=== PATIENT | male | born 1945 ===

== ENCOUNTER 2020-03-02 10:16 | Inpatient (IN) | payer MEDICARE, BC ==
--- NOTE | 2020-03-02 07:47 | EDM.PDOC ---
ED HPI GENERAL MEDICAL PROBLEM - General Stated Complaint: AMBULANCE Time Seen by Provider: 03/02/20 08:05 Source of Information: Reports: Patient, EMS History Limitations: Reports: No Limitations - History of Present Illness INITIAL COMMENTS - FREE TEXT/NARRATIVE: This 74 yo male patient was brought to the ED by [facility] due to increased shortness of breath and head congestion. The patient had an oxygen saturation of 94-95% after EMS placed the patient on a nasal cannula @ 6 lpm. The patient reports his shortness of breath started to get worse yesterday. The patient reports his symptoms are much worse with any exertion. The patient denies any chest pain. The patient reports he has had 2 stents placed in 1997. The patient has a past medical history of CAD, Htn and diabetes. Onset Date: 03/01/20 Duration: Constant, Getting Worse Location: Reports: Chest Quality: Reports: Pressure Severity: Moderate Improves with: Reports: Rest Worsens with: Reports: Movement Context: Reports: Activity Associated Symptoms: Reports: Shortness of Breath. 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) - Related Data Allergies Allergy/AdvReac Type Severity Reaction Status Date / Time No Known Allergies Allergy Verified 03/02/20 08:05 Home Meds: Home Meds Aspirin [Aspirin EC] 81 mg PO DAILY 03/02/20 [History] Glucosamine [Glucosamine Sulfate] 500 mg PO TID 03/02/20 [History] Lansoprazole [Prevacid] 30 mg PO DAILY 03/02/20 [History] amLODIPine Besylate [Amlodipine Besylate] 10 mg PO BID 03/02/20 [History] atenoloL [Atenolol] 100 mg PO BID 03/02/20 [History] glipiZIDE [Glucotrol XL] 5 mg PO BRK 03/02/20 [History] hydroCHLOROthiazide [Hydrochlorothiazide] 50 mg PO DAILY 03/02/20 [History] lisinopriL [Lisinopril] 40 mg PO BID 03/02/20 [History] metFORMIN [Glucophage] 1,000 mg PO BIDMEALS 03/02/20 [History] ED ROS GENERAL - Review of Systems Review Of Systems: Comprehensive ROS is negative, except as noted in HPI. ED EXAM, GENERAL - Physical Exam Exam: See Below Exam Limited By: No Limitations General Appearance: Alert, WD/WN, Mild Distress, Obese Eye Exam: Bilateral Eye: EOMI, Normal Inspection, PERRL Ears: Normal External Exam, Normal Canal, Hearing Grossly Normal, Normal TMs Nose: Normal Inspection, Normal Mucosa, No Blood Throat/Mouth: Normal Inspection, Normal Lips, Normal Teeth, Normal Gums, Normal Oropharynx, Normal Voice, No Airway Compromise Head: Atraumatic, Normocephalic Neck: Normal Inspection, Supple, Non-Tender, Full Range of Motion Respiratory/Chest: Decreased Breath Sounds (throughout) Cardiovascular: Irregularly Irregular GI/Abdominal: Normal Bowel Sounds, Soft, Non-Tender, No Organomegaly, No Distention, No Abnormal Bruit, No Mass, Other (obese) (Male) Exam: Deferred Rectal (Males) Exam: Deferred Back Exam: Normal Inspection, Full Range of Motion, NT Extremities: Normal Inspection, Normal Range of Motion, Non-Tender, Normal Capillary Refill, No Pedal Edema Neurological: Alert, Oriented, CN II-XII Intact, Normal Cognition, Normal Gait, Normal Reflexes, No Motor/Sensory Deficits Psychiatric: Normal Affect, Normal Mood Skin Exam: Warm, Dry, Intact, Normal Color, No Rash Lymphatic: No Adenopathy Course - Vital Signs Last Recorded V/S: Last Vital Signs Temp 36.8 C 03/02/20 07:50 Pulse 97 03/02/20 07:50 Resp 28 H 03/02/20 07:50 BP 155/90 H 03/02/20 07:50 Pulse Ox 93 L 03/02/20 07:50 - Orders/Labs/Meds Orders: Active Orders 24 hr Category Date Time Status Admission Diagnosis [ADT] Urgent ADT 03/02/20 10:08 Ordered Admission Status [Patient Status] [ADT] Routine ADT 03/02/20 10:08 Ordered EKG Documentation Completion [RC] STAT Care 03/02/20 08:13 Active CORONAVIRUS COVID-19 PCR PHL Urgent Lab 03/02/20 10:02 Ordered CULTURE BLOOD [BC] Stat Lab 03/02/20 08:14 Ordered CULTURE BLOOD [BC] Stat Lab 03/02/20 08:51 Ordered Azithromycin [Zithromax] 500 mg Med 03/02/20 10:07 Ordered Sodium Chloride 0.9% [Normal Saline (AdvBag)] 250 ml IV ONETIME cefTRIAXone [Rocephin] 1 gm Med 03/02/20 10:07 Ordered Sodium Chloride 0.9% [Normal Saline] 50 ml IV ONETIME Isolation [COMM] Routine Oth 03/02/20 07:42 Active Medication Orders Azithromycin 500 mg/ Sodium (Chloride) 250 mls @ 250 mls/hr IV ONETIME ONE Stop: 03/02/20 11:06 Ceftriaxone Sodium 1 gm/ (Sodium Chloride) 50 mls @ 100 mls/hr IV ONETIME ONE Stop: 03/02/20 10:36 Labs: Laboratory Tests 03/02/20 03/02/20 03/02/20 Range/Units 07:50 08:18 08:18 WBC 14.1 H (5.0-10.0) 10^3/uL RBC 4.68 (4.6-6.2) 10^6/uL Hgb 13.9 L (14.0-18.0) g/dL Hct 40.1 (40.0-54.0) % MCV 85.7 (80-100) fL MCH 29.7 (27.0-34.0) pg MCHC 34.7 (33.0-35.0) g/dL Plt Count 292 (150-450) 10^3/uL Neut % (Auto) 88.2 H (42.2-75.2) % Lymph % (Auto) 4.9 L (20.5-50.1) % [place] % (Auto) 6.2 (2-8) % Eos % (Auto) 0.2 L (1.0-3.0) % Baso % (Auto) 0.5 (0.0-1.0) % Add Manual Diff Yes Neutrophils % (Manual) 87 H (42-75) % Band Neutrophils % 1 % Lymphocytes % (Manual) 6 L (20-50) % Monocytes % (Manual) 6 (2-8) % D-Dimer, Quantitative (0-400) ng/mL Sodium 137 (136-145) mmol/L Potassium 3.7 (3.5-5.1) mmol/L Chloride 98 (98-107) mmol/L Carbon Dioxide 24 (21-32) mmol/L Anion Gap 18.7 H (7-13) mEq/L BUN 21 H (7-18) mg/dL Creatinine 1.36 H (0.70-1.30) mg/dL Est Cr Clr Drug Dosing 50.75 mL/min Estimated GFR (MDRD) 51 BUN/Creatinine Ratio 15.4 (No establ ref range) Glucose 221 H (74-99) mg/dL Lactic Acid (0.4-2.0) mmol/L Calcium 8.4 L (8.5-10.1) mg/dL Total Bilirubin 3.2 H (0.2-1.0) mg/dL AST 24 (15-37) U/L ALT 26 (16-63) U/L Alkaline Phosphatase 90 (46-116) U/L Troponin I < 0.017 (0.000-0.056) ng/mL C-Reactive Protein 22.0 H (0.0-0.9) mg/dL B-Natriuretic Peptide (0-100) pg/ml Total Protein 7.1 (6.4-8.2) g/dL Albumin 3.0 L (3.4-5.0) g/dL Globulin 4.1 Albumin/Globulin Ratio 0.73 SARS CoV-2 RNA Rapid MATEO Negative (NEGATIVE) 03/02/20 03/02/20 03/02/20 Range/Units 08:18 08:18 08:18 WBC (5.0-10.0) 10^3/uL RBC (4.6-6.2) 10^6/uL Hgb (14.0-18.0) g/dL Hct (40.0-54.0) % MCV (80-100) fL MCH (27.0-34.0) pg MCHC (33.0-35.0) g/dL Plt Count (150-450) 10^3/uL Neut % (Auto) (42.2-75.2) % Lymph % (Auto) (20.5-50.1) % [place] % (Auto) (2-8) % Eos % (Auto) (1.0-3.0) % Baso % (Auto) (0.0-1.0) % Add Manual Diff Neutrophils % (Manual) (42-75) % Band Neutrophils % % Lymphocytes % (Manual) (20-50) % Monocytes % (Manual) (2-8) % D-Dimer, Quantitative 2220 H (0-400) ng/mL Sodium (136-145) mmol/L Potassium (3.5-5.1) mmol/L Chloride (98-107) mmol/L Carbon Dioxide (21-32) mmol/L Anion Gap (7-13) mEq/L BUN (7-18) mg/dL Creatinine (0.70-1.30) mg/dL Est Cr Clr Drug Dosing mL/min Estimated GFR (MDRD) BUN/Creatinine Ratio (No establ ref range) Glucose (74-99) mg/dL Lactic Acid 2.4 H* (0.4-2.0) mmol/L Calcium (8.5-10.1) mg/dL Total Bilirubin (0.2-1.0) mg/dL AST (15-37) U/L ALT (16-63) U/L Alkaline Phosphatase (46-116) U/L Troponin I (0.000-0.056) ng/mL C-Reactive Protein (0.0-0.9) mg/dL B-Natriuretic Peptide 411 H (0-100) pg/ml Total Protein (6.4-8.2) g/dL Albumin (3.4-5.0) g/dL Globulin Albumin/Globulin Ratio SARS CoV-2 RNA Rapid MATEO (NEGATIVE) Meds: Medications Generic Name Dose Route Start Last Admin Trade Name Freq PRN Reason Stop Dose Admin Azithromycin 500 mg/ Sodium 250 mls @ 250 mls/hr 03/02/20 10:07 Chloride IV 03/02/20 11:06 ONETIME ONE Ceftriaxone Sodium 1 gm/ 50 mls @ 100 mls/hr 03/02/20 10:07 Sodium Chloride IV 03/02/20 10:36 ONETIME ONE Discontinued Medications Generic Name Dose Route Start Last Admin Trade Name Freq PRN Reason Stop Dose Admin Aspirin 324 mg 03/02/20 08:27 03/02/20 08:43 Aspirin PO 03/02/20 08:28 324 mg ONETIME ONE Administration Iopamidol 100 ml 03/02/20 09:13 03/02/20 09:50 Isovue-370 (76%) IVPUSH 03/02/20 09:14 83 ml ONETIME ONE Administration Departure - Departure Time of Disposition: 10:14 Disposition: Admitted As Inpatient 66 Condition: Poor Clinical Impression: Hypoxia Pneumonia Qualifiers: Pneumonia type: due to unspecified organism Laterality: bilateral Lung location: unspecified part of lung Qualified Code(s): J18.9 - Pneumonia, unspecified organism - Discharge Information *PRESCRIPTION DRUG MONITORING PROGRAM REVIEWED*: Not Applicable *COPY OF PRESCRIPTION DRUG MONITORING REPORT IN PATIENT SRINATH: Not Applicable Care Plan Goals: Discussed the patient's history, examination, EKG, lab, x-ray and CT results with Dr. Beltre. Dr. Beltre accepted the patient as an inpatient at [facility] in [place] for continued evaluation and management of his symptoms. Sepsis Event Note (ED) - Focused Exam Vital Signs: Vital Signs Temp Pulse Resp BP Pulse Ox 03/02/20 07:50 36.8 C 97 28 H 155/90 H 93 L - My Orders Last 24 Hours: My Active Orders 03/02/20 07:42 Isolation [COMM] Routine 03/02/20 08:13 EKG Documentation Completion [RC] STAT 03/02/20 08:14 CULTURE BLOOD [BC] Stat 03/02/20 08:51 CULTURE BLOOD [BC] Stat 03/02/20 10:02 CORONAVIRUS COVID-19 PCR PHL Urgent 03/02/20 10:07 Azithromycin [Zithromax] 500 mg Sodium Chloride 0.9% [Normal Saline (AdvBag)] 250 ml IV ONETIME cefTRIAXone [Rocephin] 1 gm Sodium Chloride 0.9% [Normal Saline] 50 ml IV ONETIME 03/02/20 10:08 Admission Diagnosis [ADT] Urgent Admission Status [Patient Status] [ADT] Routine - Assessment/Plan Last 24 Hours: My Active Orders 03/02/20 07:42 Isolation [COMM] Routine 03/02/20 08:13 EKG Documentation Completion [RC] STAT 03/02/20 08:14 CULTURE BLOOD [BC] Stat 03/02/20 08:51 CULTURE BLOOD [BC] Stat 03/02/20 10:02 CORONAVIRUS COVID-19 PCR PHL Urgent 03/02/20 10:07 Azithromycin [Zithromax] 500 mg Sodium Chloride 0.9% [Normal Saline (AdvBag)] 250 ml IV ONETIME cefTRIAXone [Rocephin] 1 gm Sodium Chloride 0.9% [Normal Saline] 50 ml IV ONETIME 03/02/20 10:08 Admission Diagnosis [ADT] Urgent Admission Status [Patient Status] [ADT] Routine
--- NOTE | 2020-03-02 08:43 | CR ---
PROCEDURE INFORMATION: Exam: XR Chest, 1 View Exam date and time: 03/02/2020 8:30 AM Age: 74 years old Clinical indication: Shortness of breath; Additional info: Short of breath (covid -) TECHNIQUE: Imaging protocol: XR of the chest Views: 1 view. COMPARISON: No relevant prior exams. FINDINGS: Lungs: Hazy perihilar airspace consolidation bilaterally. Pleural space: Unremarkable. No pleural effusion. No pneumothorax. Heart/Mediastinum: Unremarkable. No cardiomegaly. Bones/joints: Unremarkable. IMPRESSION: Hazy perihilar airspace consolidation bilaterally. This may represent a community or hospital-acquired bacterial pneumonia. It may represent a viral pneumonia. If clinical concern remains, further evaluation with CT is recommended.
[2020-03-02 09:03] LABS: ANION GAP 18.7 mEq/L (7-13); CHLORIDE,CL 98 mmol/L (98-107); SODIUM,NA 137 mmol/L (136-145)
--- NOTE | 2020-03-02 09:55 | CT ---
PROCEDURE INFORMATION: Exam: CT Chest With Contrast; Diagnostic Exam date and time: 03/02/2020 9:36 AM Age: 74 years old Clinical indication: Shortness of breath; Patient HX: HX colon and bladder CA; Additional info: Short of breath TECHNIQUE: Imaging protocol: Diagnostic computed tomography of the chest with intravenous contrast. Radiation optimization: All CT scans at this facility use at least one of these dose optimization techniques: automated exposure control; mA and/or kV adjustment per patient size (includes targeted exams where dose is matched to clinical indication); or iterative reconstruction. Contrast material: ISOVUE 370; Contrast volume: 83 ml; Contrast route: INTRAVENOUS (IV); COMPARISON: CR Chest 1V Frontal 03/02/2020 8:30 AM FINDINGS: Lungs: Hazy ground-glass opacity throughout the upper lungs. Pleural space: Small bilateral pleural effusions. Consolidation of the adjacent pulmonary parenchyma. Heart: Mild diffuse cardiac enlargement. Aorta: Unremarkable. No aortic aneurysm. Lymph nodes: Unremarkable. No enlarged lymph nodes. Bones/joints: Mild degenerative spondylosis in the spine. Otherwise, unremarkable. No fractures or dislocations. Soft tissues: Unremarkable. IMPRESSION: 1. Hazy ground-glass opacity throughout the upper lungs may represent edema secondary to failure. A diffuse pneumonitis is also possible. 2. Small bilateral pleural effusions. Air space consolidation adjacent to the effusions may represent compressive atelectasis, pneumonia or a combination of both.
[~2020-03-02 10:16] MED LIST: Aspirin 81 MG Tab.Chew PO ONE; Azithromycin 500 MG in Sodium Chloride 0.9% 250 ML IV ONE; Iopamidol 755 Mg/ML 100 ML Bottle IVPUSH ONE; cefTRIAXone 1 GM in Sodium Chloride 0.9% 50 ML IV ONE
[2020-03-02] MEDS ORDERED: Ondansetron 4 MG/2 ML SDV IVPUSH PRN (11:20)
[2020-03-02] MEDS ORDERED: Magnesium Hydroxide 400 MG/5 ML Susp 30 ML Cup PO PRN (11:20)
[2020-03-02] MEDS ORDERED: Acetaminophen 325 MG Tab PO PRN (11:20)
[2020-03-02] MEDS ORDERED: Docusate Sodium 100 MG Cap PO PRN (11:20)
[2020-03-02] MEDS ORDERED: Sodium Chloride 0.9% 1,000 ML IV SCH (11:30)
--- NOTE | 2020-03-02 11:53 | PCM.HP ---
H&P History of Present Illness - General Date of Service: 03/02/20 Admit Problem/Dx: Admission Diagnosis/Problem Admission Diagnosis/Problem Pneumonia Source of Information: Patient History Limitations: Reports: No Limitations - History of Present Illness Initial Comments - Free Text/Narative: Shelly is 74-year-old male with past medical history significant for CAD status post stents x2, hypertension, type 2 diabetes, morbid obesity who presented to the ED for evaluation of increasing shortness of breath and cough. Per patient he was doing okay until yesterday in the afternoon when about started. He reports increasing shortness of breath especially with exertion. He gets easily fatigued after walking a few distance. He denies chest pain. He has nonproductive cough. He has no fever or chills. He denies leg swelling, calf pain, recent travel or sick contact. He denies orthopnea, PND. This morning shortness of breath was getting worse so he was brought to the ED EMS for further evaluation. per EMS report patient was saturation at 94 to 95% on room air. He was placed on 6 L/min via nasal cannula. In the ED vitals were stable. Oxygen supplementation was decreased to 2.5 L via nasal cannula. Labs significant for WBC 14.1, with left shift. Creatinine 1.36, lactic acid 2.4. BNP 411. COVID-19 test was negative x2 in the ED. D- dimer was elevated at 2220. Chest x-ray showed hazy bilateral consolidation concerning for pneumonia. He had a CTA chest that was negative for PE. It did show hazy groundglass opacity throughout lung for concerning for edema. Patient received IV ceftriaxone and azithromycin. Admission was requested for further management. Onset of Symptoms: Reports: Gradual Duration of Symptoms: Reports: Day(s): Location: Reports: Chest Quality: Reports: Ache Improves with: Reports: Rest Worsens with: Reports: Movement Associated Symptoms: Reports: Cough, Malaise, Shortness of Breath - Related Data Allergies/Adverse Reactions: Allergies Allergy/AdvReac Type Severity Reaction Status Date / Time No Known Allergies Allergy Verified 03/02/20 08:05 Home Medications: Home Meds Aspirin [Aspirin EC] 81 mg PO DAILY 03/02/20 [History] Glucosamine [Glucosamine Sulfate] 1,500 mg PO DAILY 03/02/20 [History] Lansoprazole [Prevacid] 30 mg PO DAILY 03/02/20 [History] amLODIPine Besylate [Amlodipine Besylate] 10 mg PO BID 03/02/20 [History] atenoloL [Atenolol] 100 mg PO BID 03/02/20 [History] atorvaSTATin [Lipitor] 40 mg PO BEDTIME 03/02/20 [History] glipiZIDE [Glucotrol XL] 5 mg PO DAILY 03/02/20 [History] hydroCHLOROthiazide [Hydrochlorothiazide] 50 mg PO DAILY 03/02/20 [History] lisinopriL [Lisinopril] 40 mg PO BID 03/02/20 [History] metFORMIN [Glucophage] 1,000 mg PO BIDMEALS 03/02/20 [History] Past Medical History Cardiovascular History: Reports: High Cholesterol, Hypertension, Stents, Other (See Below) Other Cardiovascular History: Pt states he has been carrying nitro since 1997 Respiratory History: Reports: Sleep Apnea Gastrointestinal History: Reports: GERD Genitourinary History: Reports: Other (See Below) Other Genitourinary History: Tumor removed from bladder Musculoskeletal History: Reports: Fracture, Other (See Below) Endocrine/Metabolic History: Reports: Diabetes, Type II 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, Colon - Infectious Disease History Infectious Disease History: Reports: Measles, Mumps - Past Surgical History Cardiovascular Surgical History: Reports: Other (See Below) Other Cardiovascular Surgeries/Procedures: Cardiac stent Respiratory Surgical History: Reports: None GI Surgical History: Reports: Colon Male Surgical History: Reports: Other (See Below) Other Male Surgeries/Procedures: Tumor removed from bladder Endocrine Surgical History: Reports: None Musculoskeletal Surgical History: Reports: Hip Replacement, Other (See Below) Other Musculoskeletal Surgeries/Procedures:: right hip replacement(may 2018) Social & Family History - Tobacco Use Tobacco Use Status *Q: Former Tobacco User Used Tobacco, but Quit: Yes Month/Year Tobacco Last Used: 1999 - Recreational Drug Use Recreational Drug Use: No H&P Review of Systems - Review of Systems: General: Reports: No Symptoms HEENT: Reports: No Symptoms Pulmonary: Reports: Shortness of Breath, Cough Cardiovascular: Reports: No Symptoms Gastrointestinal: Reports: No Symptoms Genitourinary: Reports: No Symptoms Musculoskeletal: Reports: No Symptoms Skin: Reports: No Symptoms Psychiatric: Reports: No Symptoms Neurological: Reports: No Symptoms Hematologic/Lymphatic: Reports: No Symptoms Immunologic: Reports: No Symptoms Exam - Vital Signs Vital Signs: Last Vital Signs Temp 97.4 F 03/02/20 10:57 Pulse 82 03/02/20 10:57 Resp 28 H 03/02/20 10:57 BP 146/92 H 03/02/20 10:57 Pulse Ox 96 03/02/20 10:57 Weight: 335 lb 9.6 oz - Exam Quality Assessment: Supplemental Oxygen, DVT Prophylaxis General: Alert, Oriented, Other HEENT: PERRLA, Hearing Intact, Mucosa Moist & [place], Nares Patent, Normal Nasal Septum, Posterior Pharynx Clear, Conjunctiva Clear, EOMI, EACs Clear, TMs Clear Neck: Supple, Trachea Midline Lungs: Clear to Auscultation, Normal Respiratory Effort Cardiovascular: Regular Rate, Regular Rhythm GI/Abdominal Exam: Normal Bowel Sounds, Soft, Non-Tender, No Organomegaly, No Distention, No Abnormal Bruit, No Mass, Pelvis Stable (Male) Exam: Deferred Rectal (Males) Exam: Deferred Back Exam: Normal Inspection, Full Range of Motion, NT Extremities: Normal Inspection, Normal Range of Motion, Non-Tender, No Pedal Edema, Normal Capillary Refill Skin: Warm, Dry, Intact Neurological: Cranial Nerves Intact, Reflexes Equal Bilateral Neuro Extensive - Mental Status: Alert, Oriented x3, Normal Mood/Affect, Normal Cognition Neuro Extensive - Motor, Sensory, Reflexes: CN II-XII Intact, Normal Gait, Normal Reflexes - Patient Data Lab Results Last 24 hrs: Laboratory Results - last 24 hr 03/02/20 03/02/20 03/02/20 Range/Units 07:50 08:18 08:18 WBC 14.1 H (5.0-10.0) 10^3/uL RBC 4.68 (4.6-6.2) 10^6/uL Hgb 13.9 L (14.0-18.0) g/dL Hct 40.1 (40.0-54.0) % MCV 85.7 (80-100) fL MCH 29.7 (27.0-34.0) pg MCHC 34.7 (33.0-35.0) g/dL Plt Count 292 (150-450) 10^3/uL Neut % (Auto) 88.2 H (42.2-75.2) % Lymph % (Auto) 4.9 L (20.5-50.1) % [place] % (Auto) 6.2 (2-8) % Eos % (Auto) 0.2 L (1.0-3.0) % Baso % (Auto) 0.5 (0.0-1.0) % Add Manual Diff Yes Neutrophils % (Manual) 87 H (42-75) % Band Neutrophils % 1 % Lymphocytes % (Manual) 6 L (20-50) % Monocytes % (Manual) 6 (2-8) % D-Dimer, Quantitative (0-400) ng/mL Sodium 137 (136-145) mmol/L Potassium 3.7 (3.5-5.1) mmol/L Chloride 98 (98-107) mmol/L Carbon Dioxide 24 (21-32) mmol/L Anion Gap 18.7 H (7-13) mEq/L BUN 21 H (7-18) mg/dL Creatinine 1.36 H (0.70-1.30) mg/dL Est Cr Clr Drug Dosing 50.75 mL/min Estimated GFR (MDRD) 51 BUN/Creatinine Ratio 15.4 (No establ ref range) Glucose 221 H (74-99) mg/dL POC Glucose (83-110) mg/dl Lactic Acid (0.4-2.0) mmol/L Calcium 8.4 L (8.5-10.1) mg/dL Total Bilirubin 3.2 H (0.2-1.0) mg/dL AST 24 (15-37) U/L ALT 26 (16-63) U/L Alkaline Phosphatase 90 (46-116) U/L Troponin I < 0.017 (0.000-0.056) ng/mL C-Reactive Protein 22.0 H (0.0-0.9) mg/dL B-Natriuretic Peptide (0-100) pg/ml Total Protein 7.1 (6.4-8.2) g/dL Albumin 3.0 L (3.4-5.0) g/dL Globulin 4.1 Albumin/Globulin Ratio 0.73 SARS CoV-2 RNA Rapid MATEO Negative (NEGATIVE) 03/02/20 03/02/20 03/02/20 Range/Units 08:18 08:18 08:18 WBC (5.0-10.0) 10^3/uL RBC (4.6-6.2) 10^6/uL Hgb (14.0-18.0) g/dL Hct (40.0-54.0) % MCV (80-100) fL MCH (27.0-34.0) pg MCHC (33.0-35.0) g/dL Plt Count (150-450) 10^3/uL Neut % (Auto) (42.2-75.2) % Lymph % (Auto) (20.5-50.1) % [place] % (Auto) (2-8) % Eos % (Auto) (1.0-3.0) % Baso % (Auto) (0.0-1.0) % Add Manual Diff Neutrophils % (Manual) (42-75) % Band Neutrophils % % Lymphocytes % (Manual) (20-50) % Monocytes % (Manual) (2-8) % D-Dimer, Quantitative 2220 H (0-400) ng/mL Sodium (136-145) mmol/L Potassium (3.5-5.1) mmol/L Chloride (98-107) mmol/L Carbon Dioxide (21-32) mmol/L Anion Gap (7-13) mEq/L BUN (7-18) mg/dL Creatinine (0.70-1.30) mg/dL Est Cr Clr Drug Dosing mL/min Estimated GFR (MDRD) BUN/Creatinine Ratio (No establ ref range) Glucose (74-99) mg/dL POC Glucose (83-110) mg/dl Lactic Acid 2.4 H* (0.4-2.0) mmol/L Calcium (8.5-10.1) mg/dL Total Bilirubin (0.2-1.0) mg/dL AST (15-37) U/L ALT (16-63) U/L Alkaline Phosphatase (46-116) U/L Troponin I (0.000-0.056) ng/mL C-Reactive Protein (0.0-0.9) mg/dL B-Natriuretic Peptide 411 H (0-100) pg/ml Total Protein (6.4-8.2) g/dL Albumin (3.4-5.0) g/dL Globulin Albumin/Globulin Ratio SARS CoV-2 RNA Rapid MATEO (NEGATIVE) 03/02/20 Range/Units 11:22 WBC (5.0-10.0) 10^3/uL RBC (4.6-6.2) 10^6/uL Hgb (14.0-18.0) g/dL Hct (40.0-54.0) % MCV (80-100) fL MCH (27.0-34.0) pg MCHC (33.0-35.0) g/dL Plt Count (150-450) 10^3/uL Neut % (Auto) (42.2-75.2) % Lymph % (Auto) (20.5-50.1) % [place] % (Auto) (2-8) % Eos % (Auto) (1.0-3.0) % Baso % (Auto) (0.0-1.0) % Add Manual Diff Neutrophils % (Manual) (42-75) % Band Neutrophils % % Lymphocytes % (Manual) (20-50) % Monocytes % (Manual) (2-8) % D-Dimer, Quantitative (0-400) ng/mL Sodium (136-145) mmol/L Potassium (3.5-5.1) mmol/L Chloride (98-107) mmol/L Carbon Dioxide (21-32) mmol/L Anion Gap (7-13) mEq/L BUN (7-18) mg/dL Creatinine (0.70-1.30) mg/dL Est Cr Clr Drug Dosing mL/min Estimated GFR (MDRD) BUN/Creatinine Ratio (No establ ref range) Glucose (74-99) mg/dL POC Glucose 184 H (83-110) mg/dl Lactic Acid (0.4-2.0) mmol/L Calcium (8.5-10.1) mg/dL Total Bilirubin (0.2-1.0) mg/dL AST (15-37) U/L ALT (16-63) U/L Alkaline Phosphatase (46-116) U/L Troponin I (0.000-0.056) ng/mL C-Reactive Protein (0.0-0.9) mg/dL B-Natriuretic Peptide (0-100) pg/ml Total Protein (6.4-8.2) g/dL Albumin (3.4-5.0) g/dL Globulin Albumin/Globulin Ratio SARS CoV-2 RNA Rapid MATEO (NEGATIVE) Result Diagrams: 03/02/20 08:18 03/02/20 08:18 [place] Results Last 24 hrs: Microbiology 03/02/20 07:50 Influenza Type A Antigen Screen - Final Nasal, Unspecified NEGATIVE INFLUENZA A VIRUS AG REFERENCE RANGE: NEGATIVE Influenza Type B Antigen Screen - Final NEGATIVE INFLUENZA B VIRUS AG REFERENCE RANGE: NEGATIVE - Problem List (1) Acute respiratory failure with hypoxia SNOMED Code(s): 29550555, 772339117 ICD Code: J96.01 - ACUTE RESPIRATORY FAILURE WITH HYPOXIA Status: Acute Current Visit: Yes (2) Sepsis SNOMED Code(s): 14656273 ICD Code: A41.9 - SEPSIS, UNSPECIFIED ORGANISM Status: Acute Current Visit: Yes (3) High anion gap metabolic acidosis SNOMED Code(s): 04144735 ICD Code: E87.2 - ACIDOSIS Status: Acute Current Visit: Yes (4) Elevated d-dimer SNOMED Code(s): 442508634 ICD Code: R79.89 - OTHER SPECIFIED ABNORMAL FINDINGS OF BLOOD CHEMISTRY Status: Acute Current Visit: Yes (5) Morbid obesity SNOMED Code(s): 808191484 ICD Code: E66.01 - MORBID (SEVERE) OBESITY DUE TO EXCESS CALORIES Status: Acute Current Visit: Yes (6) Community acquired pneumonia SNOMED Code(s): 575456846 ICD Code: J18.9 - PNEUMONIA, UNSPECIFIED ORGANISM Status: Acute Current Visit: Yes Problem List Initiated/Reviewed/Updated: Yes Orders Last 24hrs: Active Orders 24 hr Category Date Time Status Admission Diagnosis [ADT] Urgent ADT 03/02/20 10:08 Ordered Admission Status [Patient Status] [ADT] Routine ADT 03/02/20 10:08 Active Ambulate [RC] ASDIRECTED Care 03/02/20 11:20 Active Blood Glucose Check, Bedside [RC] QIDACANDBED Care 03/02/20 11:20 Active EKG Documentation Completion [RC] STAT Care 03/02/20 08:13 Active Height and Weight [RC] DAILY Care 03/02/20 11:20 Active Intake and Output [RC] QSHIFT Care 03/02/20 11:21 Active Notify Provider Vital Signs [RC] ASDIRECTED Care 03/02/20 11:21 Active Oxygen Therapy [RC] PRN Care 03/02/20 11:21 Active RT Aerosol Therapy [RC] ASDIRECTED Care 03/02/20 11:24 Active VTE/DVT Education [RC] PER UNIT ROUTINE Care 03/02/20 11:21 Active Vital Signs [RC] Q4H Care 03/02/20 11:21 Active OT Evaluation and Treatment [CONS] Routine Cons 03/02/20 11:20 Active PT Evaluation and Treatment [CONS] Routine Cons 03/02/20 11:20 Active Heart Healthy Diet [DIET] Diet 03/02/20 Lunch Active BASIC METABOLIC PANEL,BMP [CHEM] DAILY Lab 03/03/20 07:00 Ordered BASIC METABOLIC PANEL,BMP [CHEM] DAILY Lab 03/04/20 07:00 Ordered BASIC METABOLIC PANEL,BMP [CHEM] DAILY Lab 03/05/20 07:00 Ordered CBC W/O DIFF,HEMOGRAM [HEME] DAILY Lab 03/03/20 07:00 Ordered CBC W/O DIFF,HEMOGRAM [HEME] DAILY Lab 03/04/20 07:00 Ordered CBC W/O DIFF,HEMOGRAM [HEME] DAILY Lab 03/05/20 07:00 Ordered CORONAVIRUS COVID-19 PCR PHL Urgent Lab 03/02/20 10:04 Received CULTURE BLOOD [BC] Stat Lab 03/02/20 08:18 Received CULTURE BLOOD [BC] Stat Lab 03/02/20 08:51 Ordered CULTURE BLOOD [BC] Stat Lab 03/02/20 11:24 Ordered CULTURE BLOOD [BC] Stat Lab 03/02/20 11:24 Ordered CULTURE SPUTUM + SMEAR [RM] Stat Lab 03/02/20 11:20 Ordered GRAM STAIN [RM] Stat Lab 03/02/20 11:20 Ordered MAGNESIUM [CHEM] Routine Lab 03/02/20 11:20 Ordered PHOSPHORUS [CHEM] Routine Lab 03/02/20 11:20 Ordered Acetaminophen [TylenoL] Med 03/02/20 11:20 Active 650 mg PO Q4H PRN Albuterol/Ipratropium [DuoNeb 3.0-0.5 MG/3 ML] Med 03/02/20 11:20 Active 3 ml NEB Q4H PRN Azithromycin [Zithromax] 500 mg Med 03/03/20 11:00 Active Sodium Chloride 0.9% [Normal Saline (AdvBag)] 250 ml IV Q24H Docusate Sodium [Colace] Med 03/02/20 11:20 Active 100 mg PO BID PRN Heparin Sodium Med 03/02/20 21:00 Active 5,000 units SUBCUT Q12HR Magnesium Hydroxide [Milk of Magnesia] Med 03/02/20 11:20 Active 30 ml PO Q12H PRN Ondansetron [Zofran] Med 03/02/20 11:20 Active 4 mg IVPUSH Q6H PRN Sodium Chloride 0.9% [Normal Saline] 1,000 ml Med 03/02/20 11:30 Active IV ASDIRECTED cefTRIAXone [Rocephin] 1 gm Med 03/02/20 12:00 Active Sodium Chloride 0.9% [Normal Saline] 50 ml IV Q24H Blood Culture x2 Reflex Set [OM.PC] Stat Oth 03/02/20 11:20 Ordered Isolation [COMM] Routine Oth 03/02/20 07:42 Active Resuscitation Status Routine Resus Stat 03/02/20 11:20 Ordered Medication Orders Acetaminophen (Tylenol) 650 mg PO Q4H PRN PRN Reason: Pain (Mild 1-3)/fever Albuterol/Ipratropium (Duoneb 3.0-0.5 Mg/3 Ml) 3 ml NEB Q4H PRN PRN Reason: shortness of breath/wheezing Docusate Sodium (Colace) 100 mg PO BID PRN PRN Reason: Constipation Heparin Sodium (Porcine) (Heparin Sodium) 5,000 units SUBCUT Q12HR BRADY Sodium Chloride (Normal Saline) 1,000 mls @ 125 mls/hr IV ASDIRECTED BRADY Stop: 03/02/20 19:29 Ceftriaxone Sodium 1 gm/ (Sodium Chloride) 50 mls @ 100 mls/hr IV Q24H BRADY Azithromycin 500 mg/ Sodium (Chloride) 250 mls @ 250 mls/hr IV Q24H BRADY Magnesium Hydroxide (Milk Of Magnesia) 30 ml PO Q12H PRN PRN Reason: Constipation Ondansetron HCl (Zofran) 4 mg IVPUSH Q6H PRN PRN Reason: Nausea/Vomiting Assessment/Plan Comment:: #Probable pulmonary edema #Community-acquired pneumonia #Acute respiratory failure with hypoxia due to above Patient presented to the ED with increasing shortness of breath He required supplemental oxygen 2.5 L via nasal cannula CT chest negative for PE. Did show hazy groundglass opacity throughout lung field concerning for edema Chest x-ray showed hazy bilateral consolidation concerning for pneumonia BNP mildly elevated at 4 Patient euvolemic on exam Status post IV ceftriaxone and azithromycin in the ED Admit to medical floor Monitor vitals Blood culture, urine culture, sputum for Gram stain and culture Procalcitonin Continue IV ceftriaxone and azithromycin for now Continue supplemental oxygen and wean down as able IV Lasix Duo nebs as needed #Probable sepsis due to pneumonia Continue antibiotic as above for now Follow-up on cultures #Probable acute CHF exacerbation CT concerning for pulmonary edema Patient euvolemic on exam BNP 411 Lasix 40 mg IV twice daily Daily weights Fluid restriction Echo if available #Elevated D-dimer CT chest negative for PE DVT prophylaxis #History of hypertension BP within acceptable Continue home medication Monitor BP closely #Type 2 diabetes Patient on Metformin and glipizide. Hold Metformin for now Continue glipizide Sliding scale Accu-Cheks Hypoglycemia protocol #Morbid obesity Advised to lose weight #Diabetic diet #High discussion with patient and he wants to remain full code
[2020-03-02] MEDS ORDERED: glipiZIDE 5 MG Tab PO SCH (13:00)
[2020-03-02] MEDS: cefTRIAXone 1 GM in Sodium Chloride 0.9% 50 ML IV SCH (13:09)
[2020-03-02] MEDS: Aspirin 81 MG Tab.EC PO SCH (13:13)
[2020-03-02] MEDS: Pantoprazole 40 MG Tab.CR PO SCH (13:13)
[2020-03-02] MEDS: Atenolol 50 MG Tab PO SCH ×2 (13:14→20:51)
[2020-03-02] MEDS: Hydrochlorothiazide 25 MG Tab PO SCH (13:14)
[2020-03-02] MEDS: Lisinopril 20 MG Tab PO SCH ×2 (13:14→20:52)
[2020-03-02] MEDS: amLODIPine 5 MG Tab PO SCH ×2 (13:15→20:51)
[2020-03-02] MEDS: atorvaSTATin 20 MG Tab PO SCH (20:50)
[2020-03-02] MEDS: Heparin Sodium 5,000 Units/ML Vial SUBCUT SCH (20:52)
[2020-03-02] MEDS ORDERED: Furosemide 40 MG/4 ML VIAL IVPUSH ONE (23:04)
[2020-03-02] MEDS: Albuterol/Ipratropium 3.0-0.5 MG/3 ML Neb Soln NEB PRN (23:10)
[2020-03-03] MEDS: Pantoprazole 40 MG Tab.CR PO SCH (06:29)
[2020-03-03 06:52] LABS: ANION GAP 15.7 mEq/L (7-13); CHLORIDE,CL 97 mmol/L (98-107); SODIUM,NA 137 mmol/L (136-145)
[2020-03-03] MEDS: Nitroglycerin 0.1 MG/HR Transdermal Patch TRDERM SCH (09:40)
[2020-03-03] MEDS: Lisinopril 20 MG Tab PO SCH ×2 (09:41→21:56)
[2020-03-03] MEDS: Atenolol 50 MG Tab PO SCH ×2 (09:41→21:57)
[2020-03-03] MEDS: Aspirin 81 MG Tab.EC PO SCH (09:41)
[2020-03-03] MEDS: glipiZIDE 5 MG Tab PO SCH (09:41)
[2020-03-03] MEDS: amLODIPine 5 MG Tab PO SCH ×2 (09:42→21:55)
[2020-03-03] MEDS: Heparin Sodium 5,000 Units/ML Vial SUBCUT SCH (09:42)
[2020-03-03] MEDS: Furosemide 40 MG/4 ML VIAL IVPUSH SCH ×2 (09:42→14:30)
[2020-03-03] MEDS: Albuterol/Ipratropium 3.0-0.5 MG/3 ML Neb Soln NEB PRN (09:42)
[2020-03-03] MEDS: Hydrochlorothiazide 25 MG Tab PO SCH (09:42)
--- NOTE | 2020-03-03 09:55 | PCM.PN ---
- General Info Date of Service: 03/03/20 Admission Dx/Problem (Free Text): Admission Diagnosis/Problem Admission Diagnosis/Problem Pneumonia Subjective Update: Shelly is 74-year-old male with past medical history significant for CAD status post stents x2, hypertension, type 2 diabetes, morbid obesity who presented to the ED for evaluation of increasing shortness of breath and cough. He as found to have pneumonia. Chest x-ray showed hazy bilateral consolidation concerning for pneumonia. He had a CTA chest that was negative for PE. It did show hazy groundglass opacity throughout lung for concerning for edema. COVID-19 test was noted. Patient was subsequently admitted and started on IV antibiotics. Patient seen and examined this morning. He is doing fairly okay. He denies any new symptoms. Shortness of breath has improved. His oxygen was bumped up to 3 L overnight. Currently saturating at 92%. Patient in no distress. Was afebrile overnight. WBC trended down. Patient was apparently noted to be in A. fib on telemetry. He has no history of A. fib. Denies palpitation. Requested for 12-lead EKG. due to concern A. fib with controlled ventricular rate. Functional Status: Reports: Pain Controlled - Review of Systems General: Reports: No Symptoms HEENT: Reports: No Symptoms Pulmonary: Reports: No Symptoms Cardiovascular: Reports: No Symptoms Gastrointestinal: Reports: No Symptoms Genitourinary: Reports: No Symptoms Musculoskeletal: Reports: No Symptoms Skin: Reports: No Symptoms Neurological: Reports: No Symptoms Psychiatric: Reports: No Symptoms - Patient Data Vitals - Most Recent: Last Vital Signs Temp 96.8 F L 03/03/20 07:34 Pulse 75 03/03/20 07:34 Resp 22 H 03/03/20 07:34 BP 145/70 H 03/03/20 07:34 Pulse Ox 90 L 03/03/20 07:34 Weight - Most Recent: 328 lb 12.8 oz I&O - Last 24 Hours: Intake & Output 03/02/20 03/03/20 03/03/20 22:59 06:59 14:59 Intake Total 240 Balance 240 Lab Results Last 24 Hours: Laboratory Results - last 24 hr 03/02/20 03/02/20 03/02/20 Range/Units 08:18 11:22 13:04 WBC (5.0-10.0) 10^3/uL RBC (4.6-6.2) 10^6/uL Hgb (14.0-18.0) g/dL Hct (40.0-54.0) % MCV (80-100) fL MCH (27.0-34.0) pg MCHC (33.0-35.0) g/dL Plt Count (150-450) 10^3/uL Sodium (136-145) mmol/L Potassium (3.5-5.1) mmol/L Chloride (98-107) mmol/L Carbon Dioxide (21-32) mmol/L Anion Gap (7-13) mEq/L BUN (7-18) mg/dL Creatinine (0.70-1.30) mg/dL Est Cr Clr Drug Dosing mL/min Estimated GFR (MDRD) Glucose (74-99) mg/dL POC Glucose 184 H (83-110) mg/dl Lactic Acid 2.3 H* (0.4-2.0) mmol/L Calcium (8.5-10.1) mg/dL Phosphorus 2.8 (2.6-4.7) mg/dL Magnesium 0.7 L (1.8-2.4) mg/dL 03/02/20 03/02/20 03/02/20 Range/Units 16:51 17:45 21:14 WBC (5.0-10.0) 10^3/uL RBC (4.6-6.2) 10^6/uL Hgb (14.0-18.0) g/dL Hct (40.0-54.0) % MCV (80-100) fL MCH (27.0-34.0) pg MCHC (33.0-35.0) g/dL Plt Count (150-450) 10^3/uL Sodium (136-145) mmol/L Potassium (3.5-5.1) mmol/L Chloride (98-107) mmol/L Carbon Dioxide (21-32) mmol/L Anion Gap (7-13) mEq/L BUN (7-18) mg/dL Creatinine (0.70-1.30) mg/dL Est Cr Clr Drug Dosing mL/min Estimated GFR (MDRD) Glucose (74-99) mg/dL POC Glucose 166 H 179 H (83-110) mg/dl Lactic Acid 2.4 H* (0.4-2.0) mmol/L Calcium (8.5-10.1) mg/dL Phosphorus (2.6-4.7) mg/dL Magnesium (1.8-2.4) mg/dL 03/02/20 03/03/20 03/03/20 Range/Units 21:15 06:20 06:20 WBC 12.6 H (5.0-10.0) 10^3/uL RBC 4.77 (4.6-6.2) 10^6/uL Hgb 14.2 (14.0-18.0) g/dL Hct 40.9 (40.0-54.0) % MCV 85.7 (80-100) fL MCH 29.8 (27.0-34.0) pg MCHC 34.7 (33.0-35.0) g/dL Plt Count 267 (150-450) 10^3/uL Sodium 137 (136-145) mmol/L Potassium 3.7 (3.5-5.1) mmol/L Chloride 97 L (98-107) mmol/L Carbon Dioxide 28 (21-32) mmol/L Anion Gap 15.7 H (7-13) mEq/L BUN 23 H (7-18) mg/dL Creatinine 1.09 (0.70-1.30) mg/dL Est Cr Clr Drug Dosing 63.33 mL/min Estimated GFR (MDRD) > 60 Glucose 217 H (74-99) mg/dL POC Glucose (83-110) mg/dl Lactic Acid 1.1 (0.4-2.0) mmol/L Calcium 8.2 L (8.5-10.1) mg/dL Phosphorus (2.6-4.7) mg/dL Magnesium (1.8-2.4) mg/dL 03/03/20 Range/Units 07:44 WBC (5.0-10.0) 10^3/uL RBC (4.6-6.2) 10^6/uL Hgb (14.0-18.0) g/dL Hct (40.0-54.0) % MCV (80-100) fL MCH (27.0-34.0) pg MCHC (33.0-35.0) g/dL Plt Count (150-450) 10^3/uL Sodium (136-145) mmol/L Potassium (3.5-5.1) mmol/L Chloride (98-107) mmol/L Carbon Dioxide (21-32) mmol/L Anion Gap (7-13) mEq/L BUN (7-18) mg/dL Creatinine (0.70-1.30) mg/dL Est Cr Clr Drug Dosing mL/min Estimated GFR (MDRD) Glucose (74-99) mg/dL POC Glucose 225 H (83-110) mg/dl Lactic Acid (0.4-2.0) mmol/L Calcium (8.5-10.1) mg/dL Phosphorus (2.6-4.7) mg/dL Magnesium (1.8-2.4) mg/dL Conrad Results Last 24 Hours: Microbiology 03/02/20 08:18 Aerobic Blood Culture - Preliminary Blood - Venous - Iv Start NO GROWTH AFTER 1 DAY Anaerobic Blood Culture - Preliminary NO GROWTH AFTER 1 DAY 03/02/20 07:50 Influenza Type A Antigen Screen - Final Nasal, Unspecified NEGATIVE INFLUENZA A VIRUS AG REFERENCE RANGE: NEGATIVE Influenza Type B Antigen Screen - Final NEGATIVE INFLUENZA B VIRUS AG REFERENCE RANGE: NEGATIVE Med Orders - Current: Current Medications Acetaminophen (Tylenol) 650 mg PO Q4H PRN PRN Reason: Pain (Mild 1-3)/fever Albuterol/Ipratropium (Duoneb 3.0-0.5 Mg/3 Ml) 3 ml NEB Q4H PRN PRN Reason: shortness of breath/wheezing Last Admin: 03/02/20 23:10 Dose: 3 ml Documented by: Amlodipine Besylate (Norvasc) 10 mg PO BID REPLACED BY [facility] Last Admin: 03/02/20 20:51 Dose: 10 mg Documented by: Aspirin (Halfprin) 81 mg PO DAILY REPLACED BY [facility] Last Admin: 03/02/20 13:13 Dose: 81 mg Documented by: Atenolol (Tenormin) 100 mg PO BID REPLACED BY [facility] Last Admin: 03/02/20 20:51 Dose: 100 mg Documented by: Atorvastatin Calcium (Lipitor) 40 mg PO BEDTIME REPLACED BY [facility] Last Admin: 03/02/20 20:50 Dose: 40 mg Documented by: Docusate Sodium (Colace) 100 mg PO BID PRN PRN Reason: Constipation Furosemide (Lasix) 40 mg IVPUSH BIDDIURETIC REPLACED BY [facility] Glipizide (Glucotrol) 5 mg PO 0800 REPLACED BY [facility] Heparin Sodium (Porcine) (Heparin Sodium) 5,000 units SUBCUT Q12HR REPLACED BY [facility] Last Admin: 03/02/20 20:52 Dose: 5,000 units Documented by: Hydrochlorothiazide (Hydrochlorothiazide) 50 mg PO DAILY REPLACED BY [facility] Last Admin: 03/02/20 13:14 Dose: 50 mg Documented by: Ceftriaxone Sodium 1 gm/ (Sodium Chloride) 50 mls @ 100 mls/hr IV Q24H REPLACED BY [facility] Last Admin: 03/02/20 13:09 Dose: 100 mls/hr Documented by: Azithromycin 500 mg/ Sodium (Chloride) 250 mls @ 250 mls/hr IV Q24H REPLACED BY [facility] Lisinopril (Prinivil) 40 mg PO BID REPLACED BY [facility] Last Admin: 03/02/20 20:52 Dose: 40 mg Documented by: Magnesium Hydroxide (Milk Of Magnesia) 30 ml PO Q12H PRN PRN Reason: Constipation Nitroglycerin (Nitro-Dur 0.1 Mg/Hr) 0.1 mg TRDERM DAILY REPLACED BY [facility] Ondansetron HCl (Zofran) 4 mg IVPUSH Q6H PRN PRN Reason: Nausea/Vomiting Pantoprazole Sodium (Protonix) 40 mg PO ACBRK REPLACED BY [facility] Last Admin: 03/03/20 06:29 Dose: 40 mg Documented by: Discontinued Medications Aspirin (Aspirin) 324 mg PO ONETIME ONE Stop: 03/02/20 08:28 Last Admin: 03/02/20 08:43 Dose: 324 mg Documented by: Furosemide (Lasix) 40 mg IVPUSH NOW ONE Stop: 03/02/20 23:05 Last Admin: 03/02/20 23:17 Dose: 40 mg Documented by: Glipizide (Glucotrol) 5 mg PO ACBRK REPLACED BY [facility] Last Admin: 03/02/20 13:15 Dose: 5 mg Documented by: Azithromycin 500 mg/ Sodium (Chloride) 250 mls @ 250 mls/hr IV ONETIME ONE Stop: 03/02/20 11:06 Last Admin: 03/02/20 10:26 Dose: 250 mls/hr Documented by: Sodium Chloride (Normal Saline) 1,000 mls @ 125 mls/hr IV ASDIRECTED REPLACED BY [facility] Stop: 03/02/20 19:29 Last Admin: 03/02/20 14:54 Dose: 125 mls/hr Documented by: Iopamidol (Isovue-370 (76%)) 100 ml IVPUSH ONETIME ONE Stop: 03/02/20 09:14 Last Admin: 03/02/20 09:50 Dose: 83 ml Documented by: - Exam Quality Assessment: Supplemental Oxygen, DVT Prophylaxis General: Alert, Oriented HEENT: Pupils Equal, Pupils Reactive, EOMI, Mucous Membr. Moist/[place]o Neck: Supple Lungs: Clear to Auscultation, Normal Respiratory Effort Cardiovascular: Regular Rate, Regular Rhythm GI/Abdominal Exam: Normal Bowel Sounds, Soft, Non-Tender, No Organomegaly, No Distention, No Abnormal Bruit, No Mass, Pelvis Stable (Male) Exam: No Hernia, Normal Inspection, Normal Prostate, Circumcised Back Exam: Normal Inspection, Full Range of Motion Extremities: Normal Inspection, Normal Range of Motion, Non-Tender, No Pedal Edema, Normal Capillary Refill Skin: Warm, Dry, Intact Wound/Incisions: Healing Well Neurological: No New Focal Deficit Psy/Mental Status: Alert, Normal Affect, Normal Mood Sepsis Event Note - Evaluation Sepsis Screening Result: Sepsis Risk - Focused Exam Vital Signs: Vital Signs Temp Pulse Resp BP Pulse Ox 03/03/20 07:34 96.8 F L 75 22 H 145/70 H 90 L 03/03/20 04:00 97.0 F 82 24 H 175/76 H 91 L 03/02/20 23:52 97.8 F 80 22 H 140/80 93 L - Problem List & Annotations (1) Acute respiratory failure with hypoxia SNOMED Code(s): 53900045, 346941744 Code(s): J96.01 - ACUTE RESPIRATORY FAILURE WITH HYPOXIA Status: Acute Current Visit: Yes (2) Sepsis SNOMED Code(s): 64832367 Code(s): A41.9 - SEPSIS, UNSPECIFIED ORGANISM Status: Acute Current Visit: Yes (3) High anion gap metabolic acidosis SNOMED Code(s): 98756429 Code(s): E87.2 - ACIDOSIS Status: Acute Current Visit: Yes (4) Elevated d-dimer SNOMED Code(s): 872710356 Code(s): R79.89 - OTHER SPECIFIED ABNORMAL FINDINGS OF BLOOD CHEMISTRY Status: Acute Current Visit: Yes (5) Morbid obesity SNOMED Code(s): 552033427 Code(s): E66.01 - MORBID (SEVERE) OBESITY DUE TO EXCESS CALORIES Status: Acute Current Visit: Yes (6) Community acquired pneumonia SNOMED Code(s): 799795917 Code(s): J18.9 - PNEUMONIA, UNSPECIFIED ORGANISM Status: Acute Current Visit: Yes (7) New onset a-fib SNOMED Code(s): 68758703 Code(s): I48.91 - UNSPECIFIED ATRIAL FIBRILLATION Status: Acute Current Visit: Yes - Problem List Review Problem List Initiated/Reviewed/Updated: Yes - My Orders Last 24 Hours: My Active Orders 03/02/20 11:20 Ambulate [RC] ASDIRECTED Blood Glucose Check, Bedside [RC] QIDACANDBED Height and Weight [RC] 06 OT Evaluation and Treatment [CONS] Routine PT Evaluation and Treatment [CONS] Routine CULTURE SPUTUM + SMEAR [RM] Stat Acetaminophen [TylenoL] 650 mg PO Q4H PRN Albuterol/Ipratropium [DuoNeb 3.0-0.5 MG/3 ML] 3 ml NEB Q4H PRN Docusate Sodium [Colace] 100 mg PO BID PRN Magnesium Hydroxide [Milk of Magnesia] 30 ml PO Q12H PRN Ondansetron [Zofran] 4 mg IVPUSH Q6H PRN Blood Culture x2 Reflex Set [OM.PC] Stat Resuscitation Status Routine 03/02/20 11:21 Intake and Output [RC] QSHIFT Notify Provider Vital Signs [RC] .PRN Oxygen Therapy [RC] .PRN VTE/DVT Education [RC] PER UNIT ROUTINE Vital Signs [RC] 00,04,08,12,,03/02/20 11:24 RT Aerosol Therapy [RC] .PRN 03/02/20 Lunch Heart Healthy Diet [DIET] cefTRIAXone [Rocephin] 1 gm Sodium Chloride 0.9% [Normal Saline] 50 ml IV Q24H 03/02/20 13:00 Aspirin [Halfprin] 81 mg PO DAILY Pantoprazole [ProTONIX] 40 mg PO ACBRK amLODIPine [Norvasc] 10 mg PO BID atenoloL [Tenormin] 100 mg PO BID hydroCHLOROthiazide 50 mg PO DAILY lisinopriL [Prinivil] 40 mg PO BID 03/02/20 19:00 Telemetry Monitoring [Cardiac Monitoring] [RC] 03/02/20 21:00 Heparin Sodium 5,000 units SUBCUT Q12HR atorvaSTATin [Lipitor] 40 mg PO BEDTIME 03/03/20 08:00 Furosemide [Lasix] 40 mg IVPUSH BIDDIURETIC glipiZIDE [Glucotrol] 5 mg PO 0800 03/03/20 08:49 Antiembolic Devices [RC] Antiembolic Hose [OM.PC] Routine 03/03/20 09:00 Nitroglycerin [Nitro-Dur 0.1 MG/Hr] 0.1 mg TRDERM DAILY 03/03/20 11:00 Azithromycin [Zithromax] 500 mg Sodium Chloride 0.9% [Normal Saline (AdvBag)] 250 ml IV Q24H 03/04/20 07:00 BASIC METABOLIC PANEL,BMP [CHEM] DAILY CBC W/O DIFF,HEMOGRAM [HEME] DAILY 03/05/20 07:00 BASIC METABOLIC PANEL,BMP [CHEM] DAILY CBC W/O DIFF,HEMOGRAM [HEME] DAILY - Plan Plan:: #Probable pulmonary edema #Community-acquired pneumonia #Acute respiratory failure with hypoxia due to above CT chest negative for PE. Did show hazy groundglass opacity throughout lung field concerning for edema Chest x-ray showed hazy bilateral consolidation concerning for pneumonia BNP mildly elevated at 411 Continue supplemental oxygen and wean down as able Continue IV ceftriaxone and azithromycin Blood culture negative day 1 Follow-up on sputum for Gram stain and culture Continue IV Lasix Duo nebs as needed #Probable sepsis due to pneumonia Resolving Continue antibiotic as above for now Follow-up on cultures #A. fib with controlled ventricular rate. New onset Patient on atenolol. Continue We will start patient on Eliquis for chronic anticoagulation. Echo if available Continue to monitor on telemetry #Probable acute CHF exacerbation CT chest concerning for pulmonary edema Continue Lasix 40 mg IV twice daily Daily weights Fluid restriction Echo if available #Elevated D-dimer CT chest negative for PE DVT prophylaxis #History of hypertension BP within acceptable Continue home medication Monitor BP closely #Type 2 diabetes Patient on Metformin and glipizide. Hold Metformin for now Continue glipizide Accu-Cheks Hypoglycemia protocol #Morbid obesity Advised to lose weight #Diabetic diet #High discussion with patient and he wants to remain full code
[2020-03-03] MEDS: Azithromycin 500 MG in Sodium Chloride 0.9% 250 ML IV SCH (10:44)
[2020-03-03] MEDS: cefTRIAXone 1 GM in Sodium Chloride 0.9% 50 ML IV SCH (12:42)
[2020-03-03] MEDS: Albuterol/Ipratropium 3.0-0.5 MG/3 ML Neb Soln NEB SCH ×4 (15:09→22:07)
[2020-03-03] MEDS: Apixaban 5 MG Tab PO SCH (21:51)
[2020-03-03] MEDS: atorvaSTATin 20 MG Tab PO SCH (21:54)
[2020-03-04] MEDS: Albuterol/Ipratropium 3.0-0.5 MG/3 ML Neb Soln NEB SCH ×2 (04:14→20:32)
[2020-03-04 07:57] LABS: ANION GAP 12.9 mEq/L (7-13)
[2020-03-04] MEDS: Lisinopril 20 MG Tab PO SCH ×2 (09:16→20:48)
[2020-03-04] MEDS: Pantoprazole 40 MG Tab.CR PO SCH (09:16)
[2020-03-04] MEDS: glipiZIDE 5 MG Tab PO SCH (09:16)
[2020-03-04] MEDS: Apixaban 5 MG Tab PO SCH ×2 (09:16→21:33)
[2020-03-04] MEDS: Atenolol 50 MG Tab PO SCH ×2 (09:17→20:46)
[2020-03-04] MEDS: Aspirin 81 MG Tab.EC PO SCH (09:17)
[2020-03-04] MEDS: Furosemide 40 MG/4 ML VIAL IVPUSH SCH ×2 (09:17→14:33)
[2020-03-04] MEDS: Nitroglycerin 0.1 MG/HR Transdermal Patch TRDERM SCH (09:17)
[2020-03-04] MEDS: amLODIPine 5 MG Tab PO SCH ×2 (09:17→20:44)
[2020-03-04] MEDS ORDERED: Potassium Chloride 10 MEQ Tab.ER PO ONE (11:15)
[2020-03-04] MEDS: Azithromycin 500 MG in Sodium Chloride 0.9% 250 ML IV SCH (12:38)
--- NOTE | 2020-03-04 12:58 | PN ---
DATE: 03/04/2020 SUBJECTIVE: The patient is a 74-year-old male with past medical history of coronary artery disease and history of stent placement, hypertension, type 2 diabetes mellitus, and morbid obesity. The patient was admitted because of shortness of breath and cough and was found to have pneumonia. COVID-19 test was negative, but the patient also showing some signs of congestive heart failure, and he was also in atrial fibrillation. The patient is currently on ceftriaxone IV as well as azithromycin for his pneumonia and the patient is also on IV Lasix for the CHF. The patient remained in atrial fibrillation, but with controlled ventricular response and this morning the patient is feeling slightly better. He denies any chest pain or worsening of shortness of breath, and denies any fever, chills, abdominal pain, or any other complaints. LABORATORY DATA: Lab workup this morning; CBC: WBC 7.3, hemoglobin is 13.1, hematocrit is 38.2, platelets 287. Basic metabolic panel: Remarkable for potassium 2.9, chloride of 96, BUN of 29, creatinine is 1.31, and glucose of 194. OBJECTIVE: Vital Signs: Blood pressure is 150/77, pulse of 78, respirations of 22, saturation is 93% on 2 L per nasal cannula, and temperature is 97. Heart: Irregular_. Ventricular response within normal limits. Lungs: Diminished breath sounds on both bases, but no significant crackles, no wheezing. Abdomen: Obese, soft, nontender. Extremities: Remarkable for 1+ bilateral pedal edema. No calf tenderness. MEDICATIONS: Reviewed. PLAN: We will continue with his current IV antibiotics, that is azithromycin and ceftriaxone. We will also continue with IV Lasix and continue with his apixaban and the rest of his management. I am also going to replete his potassium. An echocardiogram was ordered. Results are still pending. [facility] /[id number] JENNIE
[2020-03-04] MEDS: cefTRIAXone 1 GM in Sodium Chloride 0.9% 50 ML IV SCH (14:07)
[2020-03-04] MEDS ORDERED: 50% Dextrose in Water 50 ML Syringe IV PRN (15:16)
[2020-03-04] MEDS ORDERED: Glucagon,Human Recombinant 1 MG Vial IM PRN (15:16)
[2020-03-04] MEDS: Insulin Lispro 100 Units/ML 3 ML Vial SUBCUT SCH ×2 (17:28→20:42)
[2020-03-04] MEDS: Sodium Chloride 0.9% 10 ML Syringe FLUSH PRN (20:30)
[2020-03-04] MEDS: Potassium Chloride 10 MEQ Tab.ER PO SCH (20:45)
[2020-03-04] MEDS: atorvaSTATin 20 MG Tab PO SCH (20:45)
[2020-03-05] MEDS: Albuterol/Ipratropium 3.0-0.5 MG/3 ML Neb Soln NEB SCH ×9 (01:21→23:13)
[2020-03-05 06:57] LABS: ANION GAP 12.3 mEq/L (7-13)
[2020-03-05] MEDS ORDERED: Potassium Chloride 10 MEQ Tab.ER PO ONE (08:14)
[2020-03-05] MEDS: amLODIPine 5 MG Tab PO SCH ×2 (09:01→20:59)
[2020-03-05] MEDS: Atenolol 50 MG Tab PO SCH ×2 (09:02→21:01)
[2020-03-05] MEDS: Lisinopril 20 MG Tab PO SCH ×2 (09:02→21:04)
[2020-03-05] MEDS: Aspirin 81 MG Tab.EC PO SCH (09:02)
[2020-03-05] MEDS: glipiZIDE 5 MG Tab PO SCH ×2 (09:03→21:00)
[2020-03-05] MEDS: Furosemide 40 MG/4 ML VIAL IVPUSH SCH ×2 (09:03→13:27)
[2020-03-05] MEDS: Apixaban 5 MG Tab PO SCH ×2 (09:03→20:59)
[2020-03-05] MEDS: Insulin Lispro 100 Units/ML 3 ML Vial SUBCUT SCH ×4 (09:04→20:53)
[2020-03-05] MEDS: Nitroglycerin 0.1 MG/HR Transdermal Patch TRDERM SCH (09:04)
[2020-03-05] MEDS: Pantoprazole 40 MG Tab.CR PO SCH (09:37)
--- NOTE | 2020-03-05 10:26 | PN ---
DATE: 03/05/2020 SUBJECTIVE: The patient continues to do well. Still the patient is slightly hypoxemic with activity, but overall he is feeling much better and he denies any chest pain or worsening of shortness of breath, orthopnea, PND, fever, or chills. Oxygen saturation this morning is 91% on 2 L per nasal cannula. LABORATORY DATA: Lab workup this morning; CBC: WBC 7, hemoglobin is 13, hematocrit is 38.7, platelets 316. Chem-6: Remarkable for potassium of 3.3, BUN of 36, creatinine is 1.42, glucose is 173. OBJECTIVE: Vital Signs: Blood pressure is 138/72, pulse of 64. Heart: Regular. Ventricular response within normal limits. Lungs: Diminished breath sounds on both bases, but no significant crackles, no wheezing. Abdomen: Obese, soft, nontender, bowel sounds positive. Extremities: Remarkable for 1+ bilateral pedal edema. No calf tenderness. MEDICATIONS: Reviewed. PLAN: We will continue with his apixaban and IV azithromycin and ceftriaxone, and continue with IV Lasix. I am also going to increase his glipizide to 5 mg bid and we will try to wean him off his oxygen. I am also going to give an extra potassium dose today. [facility] /[id number] MTDD
[2020-03-05] MEDS: Azithromycin 500 MG in Sodium Chloride 0.9% 250 ML IV SCH (11:06)
[2020-03-05] MEDS: cefTRIAXone 1 GM in Sodium Chloride 0.9% 50 ML IV SCH (12:49)
[2020-03-05] MEDS: Sodium Chloride 0.9% 10 ML Syringe FLUSH PRN (20:55)
[2020-03-05] MEDS: atorvaSTATin 20 MG Tab PO SCH (20:58)
[2020-03-05] MEDS: Potassium Chloride 10 MEQ Tab.ER PO SCH (20:58)
[2020-03-06] MEDS: Albuterol/Ipratropium 3.0-0.5 MG/3 ML Neb Soln NEB SCH ×6 (03:54→23:12)
[2020-03-06] MEDS: Pantoprazole 40 MG Tab.CR PO SCH (05:29)
[2020-03-06 06:44] LABS: ANION GAP 12.6 mEq/L (7-13)
[2020-03-06] MEDS: Furosemide 40 MG/4 ML VIAL IVPUSH SCH ×2 (08:05→14:23)
[2020-03-06] MEDS: Insulin Lispro 100 Units/ML 3 ML Vial SUBCUT SCH ×4 (08:05→21:21)
[2020-03-06] MEDS: Sodium Chloride 0.9% 10 ML Syringe FLUSH PRN ×3 (08:06→14:24)
[2020-03-06] MEDS: Aspirin 81 MG Tab.EC PO SCH (08:53)
[2020-03-06] MEDS: Apixaban 5 MG Tab PO SCH ×2 (08:54→21:12)
[2020-03-06] MEDS: amLODIPine 5 MG Tab PO SCH ×2 (08:54→21:18)
[2020-03-06] MEDS: Lisinopril 20 MG Tab PO SCH ×2 (08:55→21:19)
[2020-03-06] MEDS: Atenolol 50 MG Tab PO SCH ×2 (08:56→21:19)
[2020-03-06] MEDS: Nitroglycerin 0.1 MG/HR Transdermal Patch TRDERM SCH (08:58)
[2020-03-06] MEDS: glipiZIDE 5 MG Tab PO SCH ×2 (08:58→21:12)
--- NOTE | 2020-03-06 09:56 | PN ---
DATE: 03/06/2020 SUBJECTIVE: The patient continues to do well. He is feeling much better. He denies any chest pain, palpitation, orthopnea, PND, abdominal pain, nor any other complaints. LABORATORY DATA: Lab workup this morning, glucose is 174. OBJECTIVE: Vital Signs: Blood pressure is 136/77, pulse 76, respiration is 16, temperature of 97.8, and saturation is 95% on room air. Heart: Regular. Ventricular response within normal limits. Lungs: Have diminished breath sounds on both bases, but no crackles and no wheezing. Abdomen: Obese, soft, and nontender. Extremities: Remarkable for trace to 1+ bilateral pedal edema. PLAN: We will continue with his present management and we will also check his walking desaturation and if he continues to do well anticipate discharge later this afternoon or tomorrow morning. [facility] /[id number]
[2020-03-06] MEDS: Azithromycin 500 MG in Sodium Chloride 0.9% 250 ML IV SCH (11:20)
[2020-03-06] MEDS: cefTRIAXone 1 GM in Sodium Chloride 0.9% 50 ML IV SCH (12:28)
[2020-03-06] MEDS: Potassium Chloride 10 MEQ Tab.ER PO SCH (21:12)
[2020-03-06] MEDS: atorvaSTATin 20 MG Tab PO SCH (21:18)
[2020-03-07] MEDS: Albuterol/Ipratropium 3.0-0.5 MG/3 ML Neb Soln NEB SCH ×3 (03:22→13:01)
[2020-03-07] MEDS: Pantoprazole 40 MG Tab.CR PO SCH (06:00)
[2020-03-07 06:44] LABS: ANION GAP 12.8 mEq/L (7-13)
[2020-03-07] MEDS: glipiZIDE 5 MG Tab PO SCH (08:08)
[2020-03-07] MEDS: Aspirin 81 MG Tab.EC PO SCH (08:08)
[2020-03-07] MEDS: amLODIPine 5 MG Tab PO SCH (08:09)
[2020-03-07] MEDS: Apixaban 5 MG Tab PO SCH (08:09)
[2020-03-07] MEDS: Lisinopril 20 MG Tab PO SCH (08:09)
[2020-03-07] MEDS: Atenolol 50 MG Tab PO SCH (08:09)
[2020-03-07] MEDS: Furosemide 40 MG/4 ML VIAL IVPUSH SCH (08:10)
[2020-03-07] MEDS: Nitroglycerin 0.1 MG/HR Transdermal Patch TRDERM SCH (08:10)
[2020-03-07] MEDS: Insulin Lispro 100 Units/ML 3 ML Vial SUBCUT SCH ×2 (09:15→12:12)
--- NOTE | 2020-03-07 09:58 | PN ---
DATE: 03/07/2020 SUBJECTIVE: The patient continues to do well, and the patient's saturation is 94% on room air, and also the patient's oxygen saturation has been doing good even with activity. The patient would like to go home. He denies any chest pain, palpitation, orthopnea, PND, abdominal pain, nor any other complaints. LABORATORY WORKUP: This morning, Chem 6, glucose is 163, BUN is 34, creatinine is 1.39, and the rest of the panel unremarkable. OBJECTIVE: Vital Signs: Blood pressure is 163/87, pulse of 71, respirations 20, temperature of 97.2, saturation is 94% on room air. Heart: Regular. Ventricular response within normal limits. Lungs: Have diminished breath sounds in both bases, but no crackles, no wheezing. Abdomen: Obese, soft, nontender. Bowel sounds positive. Extremities: Remarkable for trace bilateral pedal edema. No calf tenderness. PLAN: We will discharge the patient home today. [facility] /[id number]
--- NOTE | 2020-03-07 10:19 | DISCH ---
FINAL DIAGNOSES: 1. Pneumonia. 2. Congestive heart failure. 3. Atrial fibrillation. 4. Hypertension. 5. Coronary artery disease. 6. Morbid obesity. 7. Type 2 diabetes mellitus. BRIEF HISTORY OF PRESENT ILLNESS: The patient is a 74-year-old gentleman with past medical history for coronary artery disease, hypertension, type 2 diabetes mellitus, morbid obesity, who was admitted because of increasing shortness of breath and cough, and the patient was found to have pneumonia and congestive heart failure. Chest x-ray showed hazy bilateral consolidation and he had a CAT scan of the chest which was negative for pulmonary embolism and it did show hazy ground- glass opacities throughout the lung concerning for edema and COVID-19 test was negative. PERTINENT LAB, X-RAY, AND OTHER TESTS: EKG is atrial fibrillation with controlled ventricular response. WBC on admission was 12.6 and SARS-COVID rapid is negative. D-dimer was 2220. HOSPITAL COURSE: The patient was admitted to General Medicine Floor. He was started on IV antibiotics with azithromycin IV as well as ceftriaxone, and the patient was also given IV Lasix for his congestive heart failure and also started on apixaban 5 mg twice a day for his atrial fibrillation. He was resumed on his home medications including lisinopril and atenolol. The patient's potassium was running low because of the IV Lasix and this was repleted, and he was started on oral potassium supplementation. He had a slow improvement. His oxygen saturation slowly improved and he was able to be weaned off from oxygen, and oxygen saturation prior to discharge on room air was 94%, and the rest of the hospital course was uncomplicated. CONDITION ON DISCHARGE: Improved. DISCHARGE INSTRUCTIONS: The patient is going to follow up with Alban Cottrell, his primary care provider in 1 week for recheck post hospitalization. We will continue with Augmentin 875 b.i.d. for the next 7 days and the patient to continue with Eliquis 5 mg b.i.d. and he will be on Lasix 40 mg daily and he will be resumed on his home medication including glipizide, which will be increased to 5 mg b.i.d. and continue with amlodipine 10 mg b.i.d. and lisinopril 40 mg b.i.d. and potassium 20 mEq daily. He is going to have recheck CBC and basic metabolic panel on his followup with Alban Cottrell. [facility] /[id number]
[2020-03-07] MEDS: Azithromycin 500 MG in Sodium Chloride 0.9% 250 ML IV SCH (11:10)
[2020-03-07] MEDS: cefTRIAXone 1 GM in Sodium Chloride 0.9% 50 ML IV SCH (13:01)
== END 2020-03-07 12:30 | disposition home or self-care (01) | DRG 871 ==
LOC: DL.ED 10:16 → DL.MS 10:31
PROVIDERS: ADMIT Student in an Organized Health Care Education/Training Program; ATTEND Internal Medicine
DX: A41.9 Sepsis, unspecified organism (principal); R09.02 Hypoxemia; Z79.84 Long term (current) use of oral hypoglycemic drugs; Z79.82 Long term (current) use of aspirin; Z79.899 Other long term (current) drug therapy; J18.9 Pneumonia, unspecified organism; I10 Essential (primary) hypertension; J96.01 Acute respiratory failure with hypoxia; I11.0 Hypertensive heart disease with heart failure; I50.9 Heart failure, unspecified; I25.10 Atherosclerotic heart disease of native coronary artery without angina pectoris; E11.9 Type 2 diabetes mellitus without complications; Z79.4 Long term (current) use of insulin; I48.91 Unspecified atrial fibrillation; Z79.01 Long term (current) use of anticoagulants; E66.01 Morbid (severe) obesity due to excess calories; Z68.32 Body mass index [BMI] 32.0-32.9, adult; K21.9 Gastro-esophageal reflux disease without esophagitis; G47.33 Obstructive sleep apnea (adult) (pediatric); E78.5 Hyperlipidemia, unspecified; Z95.5 Presence of coronary angioplasty implant and graft; Z98.890 Other specified postprocedural states; Z96.641 Presence of right artificial hip joint; Z20.828 Contact with and (suspected) exposure to other viral communicable diseases
CPT/HCPCS: 36415; 71045; 71260; 80048; 80053; 82962; 83605; 83735; 83880; 84100; 84484; 85025; 85027; 85379; 86140; 87040; 87804; 93005; 93306; 94010; 94618; 94640; 97162-GP; 97165-GO; 99284; 99285-25; A9270-GY; J0456; J0696; J1644; J1940; J7030; J7050; J7620-GY; Q9967; U0002

== ENCOUNTER 2020-09-06 09:35 | Inpatient (IN) | payer MEDICARE, BC ==
[2020-09-06] MEDS ORDERED: Albuterol/Ipratropium 3.0-0.5 MG/3 ML Neb Soln NEB ONE (09:49)
--- NOTE | 2020-09-06 09:49 | EDM.PDOC ---
ED HPI GENERAL MEDICAL PROBLEM - General Chief Complaint: Respiratory Problem Stated Complaint: AMBULANCE, SOB Time Seen by Provider: 09/06/20 09:49 Source of Information: Reports: Patient, EMS, Old Records, RN, RN Notes Reviewed History Limitations: Reports: Respiratory Distress - History of Present Illness INITIAL COMMENTS - FREE TEXT/NARRATIVE: Pt arrives from home by [facility] with c/o shortness of breath. Pt reports Hx of CHF, pulm. edema, A-fib, CAD, DM, obesity, and COPD, and was treated for pneumonia several months ago. Pt states he was seen in [facility] last week and they increased his "water pill" due to fluid retention. He denies chest pain or fever. Admits to orthopnea and increased lower extremity edema. He does not know when he last had an ECHO. Records review shows ECHO on 03/03/20 with a normal EF. Pt placed on BiPAP. Onset: Gradual Duration: Constant, Getting Worse Location: Reports: Chest, Generalized Quality: Reports: Other (Denies pain) Severity: Severe Improves with: Reports: Rest Worsens with: Reports: Other (Activity, and supine position) Associated Symptoms: Reports: No Other Symptoms - Related Data Allergies Allergy/AdvReac Type Severity Reaction Status Date / Time No Known Allergies Allergy Verified 09/06/20 12:12 Home Meds: Home Meds Aspirin [Aspirin EC] 81 mg PO DAILY 03/02/20 [History] Glucosamine [Glucosamine Sulfate] 1,500 mg PO DAILY 03/02/20 [History] Lansoprazole [Prevacid] 30 mg PO DAILY 03/02/20 [History] Nitroglycerin [Nitroglycerin Patch 0.1 MG/Hr] 2.5 mg TRDERM DAILY 03/02/20 [History] amLODIPine Besylate [Amlodipine Besylate] 10 mg PO DAILY 03/02/20 [History] atenoloL [Atenolol] 100 mg PO BID 03/02/20 [History] atorvaSTATin [Lipitor] 40 mg PO BEDTIME 03/02/20 [History] hydroCHLOROthiazide [Hydrochlorothiazide] 50 mg PO DAILY 03/02/20 [History] lisinopriL [Lisinopril] 40 mg PO BID 03/02/20 [History] Amoxicillin/Clavulanate K [Augmentin 875-125 MG] 1 tab PO BID 7 Days #14 tablet 03/07/20 [Rx] Apixaban [Eliquis] 5 mg PO BID 15 Days #30 tablet 03/07/20 [Rx] Potassium Chloride [Klor-Con 10] 20 meq PO BEDTIME 30 Days #30 tab.er 03/07/20 [Rx] Furosemide [Lasix] 40 mg PO BID 09/06/20 [History] glipiZIDE [Glucotrol] 5 mg PO DAILY 09/06/20 [History] Past Medical History Cardiovascular History: Reports: Afib, CAD, Heart Failure, High Cholesterol, Hypertension, Stents, Other (See Below) Other Cardiovascular History: Pt states he has been carrying nitro since 1997 Respiratory History: Reports: Sleep Apnea Gastrointestinal History: Reports: GERD Genitourinary History: Reports: Other (See Below) Other Genitourinary History: Tumor removed from bladder Musculoskeletal History: Reports: Fracture, Other (See Below) Endocrine/Metabolic History: Reports: Diabetes, Type II, Obesity/BMI 30+ 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, Colon - Infectious Disease History Infectious Disease History: Reports: Measles, Mumps - Past Surgical History Cardiovascular Surgical History: Reports: Other (See Below) Other Cardiovascular Surgeries/Procedures: Cardiac stent Respiratory Surgical History: Reports: None GI Surgical History: Reports: Colon Male Surgical History: Reports: Other (See Below) Other Male Surgeries/Procedures: Tumor removed from bladder Endocrine Surgical History: Reports: None Musculoskeletal Surgical History: Reports: Hip Replacement, Other (See Below) Other Musculoskeletal Surgeries/Procedures:: right hip replacement(may 2018) Social & Family History - Family History Family Medical History: No Pertinent Family History - Tobacco Use Tobacco Use Status *Q: Former Tobacco User Tobacco Use Within Last Twelve Months: Cigarettes (Quit 30 years ago) ED ROS GENERAL - Review of Systems Review Of Systems: Comprehensive ROS is negative, except as noted in HPI. ED EXAM, GENERAL - Physical Exam Exam: See Below Exam Limited By: Respiratory Distress General Appearance: Alert, Anxious, Obese Eye Exam: Bilateral Eye: Normal Inspection Nose: Normal Inspection, No Blood Throat/Mouth: Normal Lips, Normal Voice, No Airway Compromise Head: Atraumatic, Normocephalic Neck: Normal Inspection Respiratory/Chest: Chest Non-Tender, Decreased Breath Sounds, Crackles, Rales. No: Rhonchi, Wheezing Cardiovascular: Irregularly Irregular GI/Abdominal: Normal Bowel Sounds, Soft, Non-Tender, Other (Benign obese abdomen) Extremities: Pedal Edema (+2 pitting edema to knees B/L) Neurological: Alert, Oriented, No Motor/Sensory Deficits Psychiatric: Normal Affect, Anxious Skin Exam: Warm, Dry, Intact, Normal Color, No Rash #1 Interpretation EKG Date: 09/06/20 Time: 10:11 Rhythm: A-Fib Rate (Beats/Min): 110 Ethel: Normal P-Wave: Absent QRS: Other (Borderline low voltage in precordial leads) ST-T: Normal QT: Prolonged Comparison: No Change Course - Vital Signs Last Recorded V/S: Last Vital Signs Temp Pulse 107 H 09/06/20 12:17 Resp 33 H 09/06/20 12:17 BP 181/60 H 09/06/20 12:17 Pulse Ox 96 09/06/20 12:17 - Orders/Labs/Meds Orders: Active Orders 24 hr Category Date Time Status EKG 12 Lead [EKG Documentation Completion] [RC] STAT Care 09/06/20 09:52 Active Insert Urinary Catheter [OM.PC] Q24H Care 09/06/20 11:45 Ordered Peripheral IV Care [RC] . DIRECTED Care 09/06/20 09:52 Active RT Aerosol Therapy [RC] ASDIRECTED Care 09/06/20 09:49 Active RT BiPAP/CPAP [RC] ASDIRECTED Care 09/06/20 09:50 Active Urinary Catheter Assessment [RC] ASDIRECTED Care 09/06/20 11:32 Active CULTURE BLOOD [BC] Stat Lab 09/06/20 10:11 Received CULTURE BLOOD [BC] Stat Lab 09/06/20 10:19 Received Sodium Chloride 0.9% [Saline Flush] Med 09/06/20 09:51 Active 10 ml FLUSH ASDIRECTED PRN Blood Culture x2 Reflex Set [OM.PC] Stat Oth 09/06/20 09:51 Ordered Peripheral IV Insertion Adult [OM.PC] Stat Oth 09/06/20 09:52 Ordered Medication Orders Sodium Chloride (Sodium Chloride 0.9% 10 Ml Syringe) 10 ml FLUSH ASDIRECTED PRN PRN Reason: Keep Vein Open Last Admin: 09/06/20 10:25 Dose: 10 ml Documented by: TYSHAWN Labs: Laboratory Tests 05/30/21 05/30/21 05/30/21 Range/Units 10:04 10:13 10:19 WBC 13.5 H (5.0-10.0) 10^3/uL RBC 5.38 (4.6-6.2) 10^6/uL Hgb 14.3 (14.0-18.0) g/dL Hct 45.9 (40.0-54.0) % MCV 85.3 (80-100) fL MCH 26.6 L (27.0-34.0) pg MCHC 31.2 L (33.0-35.0) g/dL Plt Count 296 (150-450) 10^3/uL Neut % (Auto) 90.8 H (42.2-75.2) % Lymph % (Auto) 4.9 L (20.5-50.1) % Mitchell % (Auto) 3.6 (2-8) % Eos % (Auto) 0.4 L (1.0-3.0) % Baso % (Auto) 0.3 (0.0-1.0) % ABG pH 7.29 L (7.35-7.45) ABG pCO2 54 H (35-45) mmHg ABG pO2 99 (70-100) mmHg ABG HCO3 25.3 (22-26) mmol/L ABG O2 Saturation 96 (95-100) % ABG Base Excess -2 ((-2)-(+3)) mmol/L Deshawn Test Performed O2 Delivery Device Bipap Sodium (136-145) mmol/L Potassium (3.5-5.1) mmol/L Chloride (98-107) mmol/L Carbon Dioxide (21-32) mmol/L Anion Gap (7-13) mEq/L BUN (7-18) mg/dL Creatinine (0.70-1.30) mg/dL Est Cr Clr Drug Dosing Estimated GFR (MDRD) BUN/Creatinine Ratio (No establ ref range) Glucose (70-99) mg/dL Lactic Acid (0.4-2.0) mmol/L Calcium (8.5-10.1) mg/dL Total Bilirubin (0.2-1.0) mg/dL AST (15-37) U/L ALT (16-63) U/L Alkaline Phosphatase (46-116) U/L Troponin I (0.000-0.056) ng/mL B-Natriuretic Peptide (0-100) pg/ml Total Protein (6.4-8.2) g/dL Albumin (3.4-5.0) g/dL Globulin Albumin/Globulin Ratio Urine Color (YELLOW) Urine Appearance (CLEAR) Urine pH (5.0-9.0) Ur Specific [place] (1.005-1.030) Urine Protein (NEGATIVE) Urine Glucose (UA) (NEGATIVE) Urine Ketones (NEGATIVE) Urine Occult Blood (NEGATIVE) Urine Nitrite (NEGATIVE) Urine Bilirubin (NEGATIVE) Urine Urobilinogen (0.2-1.0) mg/dL Ur Leukocyte Esterase (NEGATIVE) U Hyaline Cast (Auto) Urine RBC /HPF Urine WBC (0-5/HPF) /HPF Ur Epithelial Cells (NOT SEEN) /HPF Amorphous Sediment (NOT SEEN) /HPF Urine Bacteria (0-FEW/HPF) /HPF Fine Granular Casts (NOT SEEN) /LPF Urine Mucus (NOT SEEN) /LPF Influenza Type A RNA Negative (NEGATIVE) Influenza Type B RNA Negative (NEGATIVE) SARS-CoV-2 RNA (MATEO) Negative (NEGATIVE) 09/06/20 09/06/20 09/06/20 Range/Units 10:19 10:19 11:25 WBC (5.0-10.0) 10^3/uL RBC (4.6-6.2) 10^6/uL Hgb (14.0-18.0) g/dL Hct (40.0-54.0) % MCV (80-100) fL MCH (27.0-34.0) pg MCHC (33.0-35.0) g/dL Plt Count (150-450) 10^3/uL Neut % (Auto) (42.2-75.2) % Lymph % (Auto) (20.5-50.1) % Mitchell % (Auto) (2-8) % Eos % (Auto) (1.0-3.0) % Baso % (Auto) (0.0-1.0) % ABG pH (7.35-7.45) ABG pCO2 (35-45) mmHg ABG pO2 (70-100) mmHg ABG HCO3 (22-26) mmol/L ABG O2 Saturation (95-100) % ABG Base Excess ((-2)-(+3)) mmol/L Deshawn Test O2 Delivery Device Sodium 141 (136-145) mmol/L Potassium 3.7 (3.5-5.1) mmol/L Chloride 101 (98-107) mmol/L Carbon Dioxide 26 (21-32) mmol/L Anion Gap 17.7 H (7-13) mEq/L BUN 19 H (7-18) mg/dL Creatinine 1.21 (0.70-1.30) mg/dL Est Cr Clr Drug Dosing TNP Estimated GFR (MDRD) 59 BUN/Creatinine Ratio 15.7 (No establ ref range) Glucose 222 H (70-99) mg/dL Lactic Acid 1.6 (0.4-2.0) mmol/L Calcium 7.4 L (8.5-10.1) mg/dL Total Bilirubin 2.2 H (0.2-1.0) mg/dL AST 18 (15-37) U/L ALT 12 L (16-63) U/L Alkaline Phosphatase 115 (46-116) U/L Troponin I < 0.017 (0.000-0.056) ng/mL B-Natriuretic Peptide 387 H (0-100) pg/ml Total Protein 7.8 (6.4-8.2) g/dL Albumin 3.1 L (3.4-5.0) g/dL Globulin 4.7 Albumin/Globulin Ratio 0.66 Urine Color Yellow (YELLOW) Urine Appearance Cloudy (CLEAR) Urine pH 6.0 (5.0-9.0) Ur Specific [place] >= 1.030 (1.005-1.030) Urine Protein >=300 H (NEGATIVE) Urine Glucose (UA) 100 H (NEGATIVE) Urine Ketones Negative (NEGATIVE) Urine Occult Blood Small H (NEGATIVE) Urine Nitrite Negative (NEGATIVE) Urine Bilirubin Negative (NEGATIVE) Urine Urobilinogen 1.0 (0.2-1.0) mg/dL Ur Leukocyte Esterase Negative (NEGATIVE) U Hyaline Cast (Auto) Few Urine RBC 40-50 H /HPF Urine WBC 0-5 (0-5/HPF) /HPF Ur Epithelial Cells Few (NOT SEEN) /HPF Amorphous Sediment Many (NOT SEEN) /HPF Urine Bacteria Few (0-FEW/HPF) /HPF Fine Granular Casts Moderate H (NOT SEEN) /LPF Urine Mucus Moderate H (NOT SEEN) /LPF Influenza Type A RNA (NEGATIVE) Influenza Type B RNA (NEGATIVE) SARS-CoV-2 RNA ([place]ATEO) (NEGATIVE) Meds: Medications Generic Name Dose Route Start Last Admin Trade Name Freq PRN Reason Stop Dose Admin Sodium Chloride 10 ml 09/06/20 09:51 09/06/20 10:25 Sodium Chloride 0.9% 10 Ml Syringe FLUSH 10 ml ASDIRECTED PRN Administration Keep Vein Open Discontinued Medications Generic Name Dose Route Start Last Admin Trade Name Freq PRN Reason Stop Dose Admin Albuterol/Ipratropium 3 ml 09/06/20 09:49 09/06/20 10:25 Albuterol/Ipratropium 3.0-0.5 Mg/3 Ml Neb Soln NEB 09/06/20 09:50 3 ml ONETIME ONE Administration Furosemide 80 mg 09/06/20 09:56 09/06/20 10:23 Furosemide 100 Mg/10 Ml Sdv IVPUSH 09/06/20 09:57 80 mg ONETIME ONE Administration - Radiology Interpretation Free Text/Narrative:: [facility] Final Radiology Report Call: [phone] assistance Online chat: [email or web address] Name: BRENNAN NGUYEN Age: 74Years M Date: 09/06/2020 SSN: -- : [id number] Study: CR CHEST 1V FRONTAL Requesting Physician: KODY COLEY Images: 1 Addl Studies: Provided Clinical History: short of breath, resp. distress Contrast: Contrast Medium: Contrast Amount: Contrast Method: CONFIDENTIALITY STATEMENT This report is intended only for use by the referring physician, and only in accordance with law. If you received this in error, call [phone]. Page 1 of 1 PROCEDURE INFORMATION: Exam: XR Chest Exam date and time: 09/06/2020 10:00 AM Age: 74 years old Clinical indication: Shortness of breath; Additional info: Short of breath, resp. Distress TECHNIQUE: Imaging protocol: XR of the chest. Views: 1 view. COMPARISON: CT Chest w Cont, Chest w Cont 03/02/2020 9:36 AM FINDINGS: Lungs: There is patchy airspace opacity scattered throughout both lungs with cephalization of pulmonary vessels suggesting probable moderate to severe pulmonary edema/CHF. Superimposed pneumonia is also possible but less likely. Pleural spaces: Small bilateral pleural effusions are present. There is no pneumothorax. Heart/Mediastinum: Heart size is moderately enlarged. Bones/joints: Unremarkable. IMPRESSION: Moderate severe pulmonary edema/CHF. Thank you for allowing us to participate in the care of your patient. Dictated and Authenticated by: Ed Mason MD 09/06/2020 10:28 AM Central Time ([place] & [place]) - Re-Assessments/Exams Free Text/Narrative Re-Assessment/Exam: 09/06/20 12:37 Pt improving with diuresis, off BiPAP. Plan to admit to hospitalist. Departure - Departure Time of Disposition: 12:39 (admitted to Dr. Miller) Disposition: Admitted As Inpatient 66 Condition: Fair Clinical Impression: Pulmonary edema w/congestive heart failure w/preserved LV function - Discharge Information *PRESCRIPTION DRUG MONITORING PROGRAM REVIEWED*: Not Applicable *COPY OF PRESCRIPTION DRUG MONITORING REPORT IN PATIENT SRINATH: Not Applicable Forms: ED Department Discharge Sepsis Event Note (ED) - Focused Exam Vital Signs: Vital Signs Pulse Resp BP Pulse Ox 09/06/20 12:17 107 H 33 H 181/60 H 96 - My Orders Last 24 Hours: My Active Orders 09/06/20 09:49 RT Aerosol Therapy [RC] ASDIRECTED 09/06/20 09:50 RT BiPAP/CPAP [RC] ASDIRECTED 09/06/20 09:51 Sodium Chloride 0.9% [Saline Flush] 10 ml FLUSH ASDIRECTED PRN Blood Culture x2 Reflex Set [OM.PC] Stat 09/06/20 09:52 EKG 12 Lead [EKG Documentation Completion] [RC] STAT Peripheral IV Care [RC] . DIRECTED Peripheral IV Insertion Adult [OM.PC] Stat 09/06/20 10:11 CULTURE BLOOD [BC] Stat 09/06/20 10:19 CULTURE BLOOD [BC] Stat 09/06/20 11:32 Urinary Catheter Assessment [RC] ASDIRECTED 09/06/20 11:45 Insert Urinary Catheter [OM.PC] Q24H - Assessment/Plan Last 24 Hours: My Active Orders 09/06/20 09:49 RT Aerosol Therapy [RC] ASDIRECTED 09/06/20 09:50 RT BiPAP/CPAP [RC] ASDIRECTED 09/06/20 09:51 Sodium Chloride 0.9% [Saline Flush] 10 ml FLUSH ASDIRECTED PRN Blood Culture x2 Reflex Set [OM.PC] Stat 09/06/20 09:52 EKG 12 Lead [EKG Documentation Completion] [RC] STAT Peripheral IV Care [RC] . DIRECTED Peripheral IV Insertion Adult [OM.PC] Stat 09/06/20 10:11 CULTURE BLOOD [BC] Stat 09/06/20 10:19 CULTURE BLOOD [BC] Stat 09/06/20 11:32 Urinary Catheter Assessment [RC] ASDIRECTED 09/06/20 11:45 Insert Urinary Catheter [OM.PC] Q24H
[2020-09-06] MEDS ORDERED: Furosemide 100 MG/10 ML SDV IVPUSH ONE (09:56)
[2020-09-06 10:08] LABS: BASE EXCESS ARTERIAL -2 mmol/L ((-2)-(+3)); BICARBONATE,ARTERIAL 25.3 mmol/L (22-26); O2 DELIVERY DEVICE BIPAP; O2 SATURATION ARTERIAL 96 % (95-100); PCO2 ARTERIAL 54 mmHg (35-45); PO2 ARTERIAL 99 mmHg (70-100)
[2020-09-06 10:09] LABS: ALLEN TEST PERFORMED
[2020-09-06] MEDS: Sodium Chloride 0.9% 10 ML Syringe FLUSH PRN ×4 (10:25→22:07)
--- NOTE | 2020-09-06 10:29 | CR ---
PROCEDURE INFORMATION: Exam: XR Chest Exam date and time: 09/06/2020 10:00 AM Age: 74 years old Clinical indication: Shortness of breath; Additional info: Short of breath, resp. Distress TECHNIQUE: Imaging protocol: XR of the chest. Views: 1 view. COMPARISON: CT Chest w Cont, Chest w Cont 03/02/2020 9:36 AM FINDINGS: Lungs: There is patchy airspace opacity scattered throughout both lungs with cephalization of pulmonary vessels suggesting probable moderate to severe pulmonary edema/CHF. Superimposed pneumonia is also possible but less likely. Pleural spaces: Small bilateral pleural effusions are present. There is no pneumothorax. Heart/Mediastinum: Heart size is moderately enlarged. Bones/joints: Unremarkable. IMPRESSION: Moderate severe pulmonary edema/CHF.
[2020-09-06 10:51] LABS: ANION GAP 17.7 mEq/L (7-13); CHLORIDE,CL 101 mmol/L (98-107); SODIUM,NA 141 mmol/L (136-145)
[2020-09-06 11:10] LABS: CORONAVIRUS COVID-19 NAA NEGATIVE (NEGATIVE)
--- NOTE | 2020-09-06 14:06 | PCM.SN.2 ---
- Free Text/Narrative Note: START OF DOCTOR EMAMIS HISTORY AND PHYSICAL / CONSULTATION NOTE Chief Complaint: Shortness of breath History of Present Illness: The patient is a 74-year-old male who presents [place] dyspnea. He states dyspnea started at 3 AM on September 06, 2020 which awakened him from his sleep. He states that when he went to bed on the night of September 06, 2019 when he was at his baseline state of health. The patient admits to cough which is nonproductive. He denies fever, rigors, nausea, vomiting, wheeze, abdominal pain, diarrhea, myalgia, chest pain. He indicates that he has chronic bilateral lower extremity edema but it has not worsened. He presents for further evaluation Surgical History: Left ankle surgery, partial colectomy, right hip surgery, cardiac stent x2, transurethral resection of the bladder Family History: Cancer, diabetes, hypertension, hyperlipidemia Social History: Tobacco: Former smoker Alcohol: Rare Caffeine: Cola Drugs: Never Allergies: No known drug allergies Code Status: Full Pertinent Laboratory Results / Pertinent Radiology Results / Pertinent Diagnostic Results / Pertinent Vital Signs: Blood pressure 181/60, pulse 107, respirations 33, temperature 97.6, patient saturating 86% on nasal cannula with FiO2 45, total bilirubin is 2.2, white blood count 13.5 Physical Examination: General: -Alert -No acute distress -No dyspnea -No tachypnea -Morbidly obese Head: -Atraumatic -Normocephalic Eyes: -Pupils equally round and reactive to light and accommodation -Extraocular muscles intact Neurological: -Cranial nerves II-XII intact Neck: -No jugular venous distention -No thyromegaly -No cervical lymphadenopathy Heart: -Regular rate -Regular rhythm -No murmurs -No gallops -No rubs Lungs: -No wheeze -No rhonchi -Questionable bibasilar rales -Distant breath sounds bilaterally Abdomen: -Normal bowel sounds in all four quadrants -No rebound -No guarding -No tenderness Extremities: -2/4 pulse in all four extremities -No clubbing -No cyanosis -3+ bipedal pitting edema to the ankles -No calf tenderness present bilaterally -Negative Homans sign bilaterally Musculoskeletal: -5/5 bilateral upper extremity strength -5/5 bilateral lower extremity strength -Sensorium of bilateral upper extremities are equal and intact -Sensorium of bilateral lower extremities are equal and intact Additional Details / Additional Findings / Exceptions / Miscellaneous: Assessment / Plan: Dyspnea secondary to COPD exacerbation and/or CHF exacerbation CHF. Echocardiogram from March 03, 2020 unremarkable. Will monitor patient telemetry and checks her cardiac enzymes. Check daily weight. Strict I/O. Lasix 40 mg IV every 8 hours COPD. DuoNeb every 4 hours + Medrol 60 mg IV every 8 hours plus 1 mg p.o. twice daily History of colon cancer, status post chemotherapy, status post colon resection. Outpatient monitoring with hematology/oncology and/or gastroenterology upon discharge Hypocalcemia. Will monitor calcium levels intermittently and supplement as necessary Hyperbilirubinemia. Will monitor bilirubin levels periodically with CMP Atrial fibrillation. Telemetry monitoring. Eliquis 5 mg p.o. twice daily History bladder cancer, status post transurethral resection of bladder. The patient indicates that he is in remission and is no longer required to be monitored for this medical condition by However I will refer him to urology upon discharge given his microscopic hematuria on urinalysis Microscopic hematuria. Outpatient follow-up with urology Obstructive sleep apnea. CPAP: Okay to use home device and/or pressure when sleeping Coronary artery disease, status post stent Diabetes. Will check fasting glucose before every meal and at bedtime and provide insulin sign scale GERD. Protonix 40 mg p.o. daily Hyperlipidemia Hypertension Obesity. Patient becomes regardless to modification DVT prophylaxis. Eliquis 5 mg p.o. twice daily Disposition: Anticipate discharge within 40 hours. At the time of admission, patient's home medications were not yet input to the EMR/BHR system. Once they are, they will be reviewed and reconciled END OF DOCTOR EMAMIS HISTORY AND PHYSICAL / CONSULTATION NOTE
[2020-09-06] MEDS ORDERED: Calcium Gluconate 10% 1 GM/10 ML SDV ONE (14:14)
[2020-09-06] MEDS ORDERED: Acetaminophen 325 MG Tab PO PRN (14:31)
[2020-09-06] MEDS ORDERED: Ondansetron 4 MG/2 ML SDV IV PRN (14:32)
[2020-09-06] MEDS: Doxycycline Monohydrate 100 MG Cap PO SCH (15:14)
[2020-09-06] MEDS: Furosemide 40 MG/4 ML VIAL IV SCH ×2 (15:15→21:56)
[2020-09-06] MEDS: methylPREDNISolone Sodium Succinate 125 MG/2 ML SDV IV SCH ×2 (15:19→22:03)
[2020-09-06] MEDS: Albuterol/Ipratropium 3.0-0.5 MG/3 ML Neb Soln INH SCH ×2 (15:22→19:09)
[2020-09-06] MEDS: Insulin Lispro 100 Units/ML 3 ML Vial SUBCUT SCH ×2 (17:51→21:50)
[2020-09-06] MEDS: metFORMIN 500 MG Tab PO SCH (20:13)
[2020-09-06] MEDS: atorvaSTATin 20 MG Tab PO SCH (21:30)
[2020-09-06] MEDS: Lisinopril 20 MG Tab PO SCH (21:30)
[2020-09-06] MEDS: Atenolol 50 MG Tab PO SCH (21:31)
[2020-09-07] MEDS: Pantoprazole 40 MG Tab.CR PO SCH (05:52)
[2020-09-07] MEDS: Furosemide 40 MG/4 ML VIAL IV SCH ×3 (05:56→22:49)
[2020-09-07] MEDS: Sodium Chloride 0.9% 10 ML Syringe FLUSH PRN ×7 (05:56→23:01)
[2020-09-07] MEDS: methylPREDNISolone Sodium Succinate 125 MG/2 ML SDV IV SCH ×3 (06:02→22:54)
[2020-09-07 07:18] LABS: ANION GAP 17.1 mEq/L (7-13); CHLORIDE,CL 99 mmol/L (98-107); SODIUM,NA 141 mmol/L (136-145)
--- NOTE | 2020-09-07 07:27 | PCM.SN.2 ---
- Free Text/Narrative Note: START OF DOCTOR RAVI PROGRESS NOTE Subjective: The patient Ellis that his respiratory test has greatly improved compared to my encounter with him on September 06, 2020. He currently rates his respiratory status is an 8 out of 10 if 10 is baseline. Overnight he denies fever, rigors, nausea, vomiting, cough, wheeze, abdominal pain, chest pain. He indicates that he has been urinating a large amount. I explained to the patient his current medical condition and plan of care and I have answered all of his questions Objective: General: -Alert -No acute distress -No dyspnea -No tachypnea -Morbidly obese Heart: -Regular rate -Regular rhythm -No murmurs -No gallops -No rubs Lungs: -Scant bilateral wheeze -No rhonchi -No rales -Distant breath sounds bilaterally Abdomen: -Normal bowel sounds in all four quadrants -No rebound -No guarding -No tenderness Extremities: -2/4 pulse in all four extremities -No clubbing -No cyanosis -Trace bipedal edema Additional Details / Additional Findings / Exceptions / Miscellaneous: Pertinent Laboratory Results / Pertinent Radiology Results / Pertinent Diagnostic Results / Pertinent Vital Signs: Respirations 26, patient saturating 100% on FiO2 via nasal cannula at 40%. Morning labs pending Assessment / Plan: Dyspnea secondary to COPD exacerbation and/or CHF exacerbation CHF. Echocardiogram from March 03, 2020 unremarkable. Will monitor patient telemetry and checks her cardiac enzymes. Check daily weight. Strict I/O. Lasix 40 mg IV every 8 hours plus atenolol 100 mg p.o. twice daily plus lisinopril 40 mg p.o. twice daily COPD. DuoNeb every 4 hours + Medrol 60 mg IV every 8 hours plus 1 mg p.o. twice daily History of colon cancer, status post chemotherapy, status post colon resection. Outpatient monitoring with hematology/oncology and/or gastroenterology upon discharge Hypocalcemia. Will monitor calcium levels intermittently and supplement as necessary Hyperbilirubinemia. Will monitor bilirubin levels periodically with CMP Atrial fibrillation. Telemetry monitoring. Norvasc 10 mg p.o. daily plus atenolol 100 mg p.o. twice daily History bladder cancer, status post transurethral resection of bladder. The patient indicates that he is in remission and is no longer required to be monitored for this medical condition by However I will refer him to urology upon discharge given his microscopic hematuria on urinalysis Microscopic hematuria. Outpatient follow-up with urology Obstructive sleep apnea. CPAP: Okay to use home device and/or pressure when sleeping Coronary artery disease, status post stent. Aspirin 81 mg p.o. daily plus atenolol 100 mg p.o. twice daily plus Lipitor 40 mg p.o. nightly Diabetes. Will check fasting glucose before every meal and at bedtime and provide insulin sign scale plus Metformin 1000 g p.o. twice daily GERD. Protonix 40 mg p.o. daily Hyperlipidemia. Lipitor 40 mg p.o. nightly Hypertension. Norvasc 10 mg p.o. daily plus atenolol 100 mg p.o. twice daily plus lisinopril 40 mg p.o. twice daily Obesity. Patient becomes regardless to modification DVT prophylaxis. Lovenox 40 mg subcutaneously daily Disposition: The patient still requires 5 L of oxygen via nasal cannula at this time which will be weaned. Once we are able to wean the patient off of supplemental oxygen, he will be a candidate for discharge. I anticipate discharge within 48 to 72 hours END OF DOCTOR RAVI PROGRESS NOTE
[2020-09-07] MEDS: Albuterol/Ipratropium 3.0-0.5 MG/3 ML Neb Soln INH SCH ×4 (07:33→18:03)
[2020-09-07] MEDS: Doxycycline Monohydrate 100 MG Cap PO SCH ×2 (08:39→22:00)
[2020-09-07] MEDS: Aspirin 81 MG Tab.EC PO SCH (08:39)
[2020-09-07] MEDS: amLODIPine 5 MG Tab PO SCH (08:39)
[2020-09-07] MEDS: Atenolol 50 MG Tab PO SCH ×2 (08:39→21:59)
[2020-09-07] MEDS: metFORMIN 500 MG Tab PO SCH ×2 (08:40→17:29)
[2020-09-07] MEDS: Lisinopril 20 MG Tab PO SCH (08:40)
[2020-09-07] MEDS: Enoxaparin 40 MG/0.4 ML Syringe SUBCUT SCH (08:40)
[2020-09-07] MEDS: Insulin Lispro 100 Units/ML 3 ML Vial SUBCUT SCH ×4 (08:46→22:10)
[2020-09-07] MEDS: Magnesium Sulfate/Water 2 GM in Premix Bag 1 BAG IV SCH ×4 (10:37→23:01)
[2020-09-07] MEDS: atorvaSTATin 20 MG Tab PO SCH (22:00)
[2020-09-08] MEDS: Pantoprazole 40 MG Tab.CR PO SCH (05:47)
[2020-09-08] MEDS: Sodium Chloride 0.9% 10 ML Syringe FLUSH PRN ×6 (05:48→22:57)
[2020-09-08] MEDS: Furosemide 40 MG/4 ML VIAL IV SCH ×3 (05:49→22:49)
[2020-09-08] MEDS: methylPREDNISolone Sodium Succinate 125 MG/2 ML SDV IV SCH ×3 (05:54→22:53)
[2020-09-08] MEDS: Albuterol/Ipratropium 3.0-0.5 MG/3 ML Neb Soln INH SCH ×4 (07:19→18:49)
--- NOTE | 2020-09-08 07:21 | PCM.SN.2 ---
- Free Text/Narrative Note: START OF DOCTOR RAVI PROGRESS NOTE Subjective: The patient Ellis that his respiratory status has improved compared to encounter with him on September 07. He currently rates his respiratory status as a 9 out of 10 at times his baseline. Overnight he denies fever, rigors, nausea, vomiting, cough, wheeze, abdominal pain, chest pain, or any other constitutional complaints. I explained the patient his current medical condition and plan of care and I have answered all of his questions Objective: General: -Alert -No acute distress -No dyspnea -No tachypnea -Morbidly obese Heart: -Regular rate -Regular rhythm -No murmurs -No gallops -No rubs Lungs: -No wheeze -No rhonchi -No rales -Improved aeration compared to September 07, 2020 Abdomen: -Normal bowel sounds in all four quadrants -No rebound -No guarding -No tenderness Extremities: -2/4 pulse in all four extremities -No clubbing -No cyanosis -No edema Additional Details / Additional Findings / Exceptions / Miscellaneous: Pertinent Laboratory Results / Pertinent Radiology Results / Pertinent Diagnostic Results / Pertinent Vital Signs: Patient saturating 93% on 5 L, white blood cell count 10.1, hemoglobin 12.7 Assessment / Plan: Dyspnea secondary to COPD exacerbation and/or CHF exacerbation CHF. Echocardiogram from March 03, 2020 unremarkable. Will monitor patient telemetry and checks her cardiac enzymes. Check daily weight. Strict I/O. Lasix 40 mg IV every 8 hours plus atenolol 100 mg p.o. twice daily Acute renal insufficiency. Will monitor creatinine levels intermittently Anemia. Will monitor hemoglobin levels intermittently Hypomagnesemia. Will monitor magnesium levels intermittently and supplement as necessary COPD. DuoNeb every 4 hours + Medrol 60 mg IV every 8 hours plus 1 mg p.o. twice daily History of colon cancer, status post chemotherapy, status post colon resection. Outpatient monitoring with hematology/oncology and/or gastroenterology upon discharge Hypocalcemia. Will monitor calcium levels intermittently and supplement as necessary Hyperbilirubinemia, chronic. Will monitor bilirubin levels periodically with CMP Atrial fibrillation. Telemetry monitoring. Norvasc 10 mg p.o. daily plus atenolol 100 mg p.o. twice daily History bladder cancer, status post transurethral resection of bladder. The patient indicates that he is in remission and is no longer required to be monitored for this medical condition by Dr. However I will refer him to urology upon discharge given his microscopic hematuria on urinalysis Microscopic hematuria. Outpatient follow-up with urology Obstructive sleep apnea. CPAP: Okay to use home device and/or pressure when sleeping Coronary artery disease, status post stent. Aspirin 81 mg p.o. daily plus atenolol 100 mg p.o. twice daily plus Lipitor 40 mg p.o. nightly Diabetes. Will check fasting glucose before every meal and at bedtime and provide insulin sign scale plus Metformin 1000 g p.o. twice daily GERD. Protonix 40 mg p.o. daily Hyperlipidemia. Lipitor 40 mg p.o. nightly Hypertension. Norvasc 10 mg p.o. daily plus atenolol 100 mg p.o. twice daily Obesity. Patient becomes regardless to modification DVT prophylaxis. Lovenox 40 mg subcutaneously daily Disposition: We will attempt to wean the patient off of supplemental oxygen via nasal cannula. I anticipate discharge in 24 to 48 hours END OF DOCTOR EMAMIS PROGRESS NOTE
[2020-09-08 07:28] LABS: ANION GAP 14.9 mEq/L (7-13); CHLORIDE,CL 99 mmol/L (98-107); SODIUM,NA 139 mmol/L (136-145)
[2020-09-08] MEDS: Insulin Lispro 100 Units/ML 3 ML Vial SUBCUT SCH ×4 (08:26→21:42)
[2020-09-08] MEDS: metFORMIN 500 MG Tab PO SCH ×2 (08:28→17:24)
[2020-09-08] MEDS: Doxycycline Monohydrate 100 MG Cap PO SCH ×2 (08:29→21:14)
[2020-09-08] MEDS: Enoxaparin 40 MG/0.4 ML Syringe SUBCUT SCH (08:30)
[2020-09-08] MEDS: amLODIPine 5 MG Tab PO SCH (08:30)
[2020-09-08] MEDS: Atenolol 50 MG Tab PO SCH ×2 (08:31→21:15)
[2020-09-08] MEDS: Aspirin 81 MG Tab.EC PO SCH (08:31)
[2020-09-08] MEDS: atorvaSTATin 20 MG Tab PO SCH (21:14)
[2020-09-09] MEDS: Pantoprazole 40 MG Tab.CR PO SCH (05:30)
[2020-09-09] MEDS: Sodium Chloride 0.9% 10 ML Syringe FLUSH PRN ×3 (05:31→05:45)
[2020-09-09] MEDS: Furosemide 40 MG/4 ML VIAL IV SCH ×3 (05:31→22:31)
[2020-09-09] MEDS: methylPREDNISolone Sodium Succinate 125 MG/2 ML SDV IV SCH ×3 (05:39→22:30)
--- NOTE | 2020-09-09 07:15 | PCM.SN.2 ---
- Free Text/Narrative Note: START OF DOCTOR EMAMIS PROGRESS NOTE Subjective: The patient endorses no complaints at this time. He denies fever, rigors, nausea, vomiting, cough, wheeze, abdominal pain, chest pain. He currently rates his respiratory status as a 9 out of 10 at times his baseline. I explained to the patient his current medical condition and plan of care and I have answered all of his questions Objective: General: -Alert -No acute distress -No dyspnea -No tachypnea -Morbidly obese Heart: -Regular rate -Regular rhythm -No murmurs -No gallops -No rubs Lungs: -No wheeze -No rhonchi -No rales -Improved aeration compared to September 07, 2020 Abdomen: -Normal bowel sounds in all four quadrants -No rebound -No guarding -No tenderness Extremities: -2/4 pulse in all four extremities -No clubbing -No cyanosis -No edema Additional Details / Additional Findings / Exceptions / Miscellaneous: Pertinent Laboratory Results / Pertinent Radiology Results / Pertinent Diagnostic Results / Pertinent Vital Signs: Patient saturating 93% on 2 L. Morning labs pending Assessment / Plan: Dyspnea secondary to COPD exacerbation and/or CHF exacerbation CHF. Echocardiogram from March 03, 2020 unremarkable. Will monitor patient telemetry and checks her cardiac enzymes. Check daily weight. Strict I/O. Lasix 40 mg IV every 8 hours plus atenolol 100 mg p.o. twice daily Acute renal insufficiency. Will monitor creatinine levels intermittently Anemia. Will monitor hemoglobin levels intermittently Hypomagnesemia. Will monitor magnesium levels intermittently and supplement as necessary COPD. DuoNeb every 4 hours + Medrol 60 mg IV every 8 hours plus 1 mg p.o. twice daily History of colon cancer, status post chemotherapy, status post colon resection. Outpatient monitoring with hematology/oncology and/or gastroenterology upon discharge Hypocalcemia. Will monitor calcium levels intermittently and supplement as necessary Hyperbilirubinemia, chronic. Will monitor bilirubin levels periodically with CMP Atrial fibrillation. Telemetry monitoring. Norvasc 10 mg p.o. daily plus atenolol 100 mg p.o. twice daily History bladder cancer, status post transurethral resection of bladder. The patient indicates that he is in remission and is no longer required to be monitored for this medical condition by However I will refer him to urology upon discharge given his microscopic hematuria on urinalysis Microscopic hematuria. Outpatient follow-up with urology Obstructive sleep apnea. CPAP: Okay to use home device and/or pressure when sleeping Coronary artery disease, status post stent. Aspirin 81 mg p.o. daily plus atenolol 100 mg p.o. twice daily plus Lipitor 40 mg p.o. nightly Diabetes. Will check fasting glucose before every meal and at bedtime and provide insulin sign scale plus Metformin 1000 g p.o. twice daily GERD. Protonix 40 mg p.o. daily Hyperlipidemia. Lipitor 40 mg p.o. nightly Hypertension. Norvasc 10 mg p.o. daily plus atenolol 100 mg p.o. twice daily plus hydralazine 50 mg p.o. 3 times daily Obesity. Patient becomes regardless to modification DVT prophylaxis. Lovenox 40 mg subcutaneously daily Disposition: We will attempt to wean the patient off of supplemental oxygen via nasal cannula. I anticipate discharge within 24 hours END OF DOCTOR EMAMIS PROGRESS NOTE
[2020-09-09 07:19] LABS: ANION GAP 16.5 mEq/L (7-13)
[2020-09-09] MEDS: Albuterol/Ipratropium 3.0-0.5 MG/3 ML Neb Soln INH SCH ×4 (08:18→18:43)
[2020-09-09] MEDS: Enoxaparin 40 MG/0.4 ML Syringe SUBCUT SCH (08:55)
[2020-09-09] MEDS: Atenolol 50 MG Tab PO SCH ×2 (08:56→22:29)
[2020-09-09] MEDS: hydrALAZINE 25 MG Tab PO SCH ×2 (08:57→16:16)
[2020-09-09] MEDS: amLODIPine 5 MG Tab PO SCH (08:57)
[2020-09-09] MEDS: Doxycycline Monohydrate 100 MG Cap PO SCH ×2 (08:57→22:30)
[2020-09-09] MEDS: metFORMIN 500 MG Tab PO SCH ×2 (08:57→17:24)
[2020-09-09] MEDS: Aspirin 81 MG Tab.EC PO SCH (08:57)
[2020-09-09] MEDS: Insulin Lispro 100 Units/ML 3 ML Vial SUBCUT SCH ×4 (09:02→22:31)
[2020-09-09] MEDS: atorvaSTATin 20 MG Tab PO SCH (22:30)
[2020-09-10] MEDS: hydrALAZINE 25 MG Tab PO SCH ×2 (00:19→09:26)
[2020-09-10] MEDS: methylPREDNISolone Sodium Succinate 125 MG/2 ML SDV IV SCH (06:12)
[2020-09-10] MEDS: Pantoprazole 40 MG Tab.CR PO SCH (06:12)
[2020-09-10] MEDS: Furosemide 40 MG/4 ML VIAL IV SCH (06:12)
[2020-09-10 07:00] LABS: ANION GAP 11.8 mEq/L (7-13)
--- NOTE | 2020-09-10 07:42 | PCM.SN.2 ---
- Free Text/Narrative Note: START OF DOCTOR EMAMIS DISCHARGE SUMMARY Date of Admission: September 06, 2020 Date of Discharge: 7:39 AM on September 10, 2020 Primary Diagnosis: Dyspnea secondary to COPD exacerbation and/or CHF exacerbation Secondary Diagnosis: CHF, echocardiogram from March 03, 2020 unremarkable Chronic kidney disease, baseline creatinine approximately 1.5 Anemia Hypomagnesemia, status post treatment COPD History of colon cancer, status post chemotherapy, status post colon resection Hypocalcemia, status post remote Hyperbilirubinemia, chronic Atrial fibrillation History of bladder cancer, status post transurethral resection of the bladder Microscopic hematuria Obstructive sleep apnea Coronary artery disease, status post stent Diabetes GERD Hyperlipidemia Hypertension Obesity Consultations: None Condition on Discharge: Fair Disposition: The patient will be advised follow-up with his primary care physician or provider 5 to 7 days post discharge for posthospitalization evaluation Patient is advised follow-up with hematology/oncology as directed for his history of colon cancer if he is still being monitored for this medical condition The patient is advised to follow-up with urology 2 to 4 weeks post discharge for microscopic hematuria Discharge Medications: Proventil HFA: 90 maria t as per spray: 2 puffs every 4 hours as needed shortness of breath or wheeze [place]-3 fatty acids 1000 mg p.o. daily Nitroglycerin patch 0.1 mg/h to be changed daily Multivitamin 1 tab p.o. daily Lisinopril 20 mg p.o. daily Prevacid 30 mg p.o. daily Glipizide 5 mg p.o. daily Lasix 40 mg p.o. daily Prednisone 10 mg p.o.: 4 tabs daily x3 days then 3 tab daily x3 days then 2 tabs daily x3 days then 1 tab daily x3 days. Quantity sufficient. 0 refills Metformin 1000 mg p.o. twice daily Hydralazine 50 mg p.o. every 8 hours Doxycycline 100 mg p.o. twice daily. Quantity 4. 0 refills Lipitor 40 mg p.o. nightly Atenolol 100 mg p.o. twice daily Aspirin 81 mg p.o. daily Norvasc 10 mg p.o. daily END OF DOCTOR EMAMIS DISCHARGE SUMMARY
[2020-09-10] MEDS: Albuterol/Ipratropium 3.0-0.5 MG/3 ML Neb Soln INH SCH ×2 (08:10→15:15)
[2020-09-10] MEDS: Atenolol 50 MG Tab PO SCH (09:24)
[2020-09-10] MEDS: Doxycycline Monohydrate 100 MG Cap PO SCH (09:24)
[2020-09-10] MEDS: Aspirin 81 MG Tab.EC PO SCH (09:24)
[2020-09-10] MEDS: metFORMIN 500 MG Tab PO SCH (09:25)
[2020-09-10] MEDS: amLODIPine 5 MG Tab PO SCH (09:26)
[2020-09-10] MEDS: Enoxaparin 40 MG/0.4 ML Syringe SUBCUT SCH (09:28)
[2020-09-10] MEDS: Insulin Lispro 100 Units/ML 3 ML Vial SUBCUT SCH ×2 (09:30→13:04)
--- NOTE | 2020-09-10 10:14 | PCM.SN.2 ---
- Free Text/Narrative Note: START OF DOCTOR EMAMIS DISCHARGE SUMMARY Date of Admission: September 06, 2020 Date of Discharge: 7:39 AM on September 10, 2020 Primary Diagnosis: Dyspnea secondary to COPD exacerbation and/or CHF exacerbation Secondary Diagnosis: CHF, echocardiogram from March 03, 2020 unremarkable Chronic kidney disease, baseline creatinine approximately 1.5 Anemia Hypomagnesemia, status post treatment COPD History of colon cancer, status post chemotherapy, status post colon resection Hypocalcemia, status post remote Hyperbilirubinemia, chronic Atrial fibrillation History of bladder cancer, status post transurethral resection of the bladder Microscopic hematuria Obstructive sleep apnea Coronary artery disease, status post stent Diabetes GERD Hyperlipidemia Hypertension Obesity Consultations: None Condition on Discharge: Fair Disposition: The patient will be advised follow-up with his primary care physician or provider 5 to 7 days post discharge for posthospitalization evaluation Patient is advised follow-up with hematology/oncology as directed for his history of colon cancer if he is still being monitored for this medical condition The patient is advised to follow-up with urology 2 to 4 weeks post discharge for microscopic hematuria Discharge Medications: Proventil HFA: 90 maria t as per spray: 2 puffs every 4 hours as needed shortness of breath or wheeze [place]-3 fatty acids 1000 mg p.o. daily Nitroglycerin patch 0.1 mg/h to be changed daily Multivitamin 1 tab p.o. daily Lisinopril 20 mg p.o. daily Prevacid 30 mg p.o. daily Glipizide 5 mg p.o. daily Lasix 40 mg p.o. daily Prednisone 10 mg p.o.: 4 tabs daily x3 days then 3 tab daily x3 days then 2 tabs daily x3 days then 1 tab daily x3 days. Quantity sufficient. 0 refills Metformin 1000 mg p.o. twice daily Hydralazine 50 mg p.o. every 8 hours Doxycycline 100 mg p.o. twice daily. Quantity 4. 0 refills Lipitor 40 mg p.o. nightly Atenolol 100 mg p.o. twice daily Aspirin 81 mg p.o. daily Norvasc 10 mg p.o. daily Patient requires 1 L of oxygen via nasal cannula with activity for diagnosis of COPD as well as CHF. Patient desaturates to 89% on room air with ambulation. Patient will require concentrator, portable tank, tubing END OF DOCTOR EMAMIS DISCHARGE SUMMARY
== END 2020-09-10 14:40 | disposition home or self-care (01) | DRG 292 ==
LOC: DL.ED 09:35 → DL.MS 12:37 → DL.ED 12:52
PROVIDERS: ADMIT Internal Medicine; ATTEND Internal Medicine
DX: I11.0 Hypertensive heart disease with heart failure (principal); I13.0 Hypertensive heart and chronic kidney disease with heart failure and stage 1 through stage 4 chronic kidney disease, or unspecified chronic kidney disease; J44.1 Chronic obstructive pulmonary disease with (acute) exacerbation; I50.1 Left ventricular failure, unspecified; E83.51 Hypocalcemia; E80.6 Other disorders of bilirubin metabolism; G47.30 Sleep apnea, unspecified; I48.91 Unspecified atrial fibrillation; E11.9 Type 2 diabetes mellitus without complications; G47.33 Obstructive sleep apnea (adult) (pediatric); R31.29 Other microscopic hematuria; Z20.822 Contact with and (suspected) exposure to COVID-19; Z79.01 Long term (current) use of anticoagulants; Z79.84 Long term (current) use of oral hypoglycemic drugs; I25.10 Atherosclerotic heart disease of native coronary artery without angina pectoris; E78.5 Hyperlipidemia, unspecified; E66.9 Obesity, unspecified; E78.00 Pure hypercholesterolemia, unspecified; K21.9 Gastro-esophageal reflux disease without esophagitis; Z96.641 Presence of right artificial hip joint; D63.1 Anemia in chronic kidney disease; E83.42 Hypomagnesemia; E11.22 Type 2 diabetes mellitus with diabetic chronic kidney disease; Z85.038 Personal history of other malignant neoplasm of large intestine; Z85.51 Personal history of malignant neoplasm of bladder; Z95.5 Presence of coronary angioplasty implant and graft; Z87.01 Personal history of pneumonia (recurrent); Z79.82 Long term (current) use of aspirin; Z79.899 Other long term (current) drug therapy; Z87.891 Personal history of nicotine dependence
CPT/HCPCS: 0240U; 36415; 36600; 71045; 80053; 81001; 82803; 82947; 83605; 83735; 83880; 84484; 85025; 87040; 93005; 93010; 94618; 94640; 94660; 96374; 99223; 99232; 99238; 99284; 99285; A9270-GY; J0610; J1650; J1815-GY; J1940; J2930; J3475; J7620-GY

== ENCOUNTER 2022-02-06 14:48 | Emergency (ER) | payer MEDICARE, BC ==
[2022-02-06] MEDS ORDERED: Sodium Chloride 0.9% 10 ML Syringe FLUSH PRN (15:20)
[2022-02-06 16:08] LABS: PTT,PARTIAL THROMBOPLSTIN TIME 42.8 SEC (22.0-34.0)
[2022-02-06 16:10] LABS: ANION GAP 38.8 mEq/L (7-13); CHLORIDE,CL 99 mmol/L (98-107); SODIUM,NA 140 mmol/L (136-145)
[2022-02-06 16:21] LABS: CORONAVIRUS COVID-19 NAA NEGATIVE (NEGATIVE)
[2022-02-06 16:50] LABS: ESTIMATED GFR 3 mL/min (>=60)
[2022-02-06 17:23] LABS: O2 DELIVERY DEVICE ROOM AIR
[2022-02-06 17:27] LABS: ALLEN TEST PERFORMED; BASE EXCESS ARTERIAL -23 mmol/L ((-2)-(+3)); BICARBONATE,ARTERIAL 6.4 mmol/L (22-26); O2 SATURATION ARTERIAL 55 % (95-100); PCO2 ARTERIAL 24 mmHg (35-45); PO2 ARTERIAL 38 mmHg (70-100)
== END 2022-02-06 19:20 ==
LOC: DL.ED 14:48
DX: N17.9 Acute kidney failure, unspecified (principal); E87.20 Acidosis, unspecified; D72.829 Elevated white blood cell count, unspecified; I48.91 Unspecified atrial fibrillation; I25.10 Atherosclerotic heart disease of native coronary artery without angina pectoris; I11.0 Hypertensive heart disease with heart failure; E78.00 Pure hypercholesterolemia, unspecified; K21.9 Gastro-esophageal reflux disease without esophagitis; E11.9 Type 2 diabetes mellitus without complications; E66.9 Obesity, unspecified; Z79.82 Long term (current) use of aspirin; Z79.899 Other long term (current) drug therapy; Z20.822 Contact with and (suspected) exposure to COVID-19; Z68.41 Body mass index [BMI] 40.0-44.9, adult
CPT/HCPCS: 0240U; 36415; 36600; 71045; 80053; 80307; 82009; 82150; 82803; 83605; 83690; 83735; 83880; 84145; 84484; 85025; 85610; 85730; 86140; 87070; 93005; 99285; J3490